=== PATIENT | male | born 2005 | race Asian ===

== ENCOUNTER → 2025-04-13 | Outpatient (CLI) | payer OTHER, SELFPAY ==
[2025-04-13 16:21] LABS: Hematocrit 46.9 % (40-54); Hemoglobin 15.9 g/dL (13.0-16.5); Immature Granulocytes Count 0.070 X10^3/uL (0.0-0.0); Mean Corp Hgb Conc 33.9 g/dL (32-36); Mean Corpuscular Volume 85.9 fL (80-94); Mean Platelet Vol. 10.3 fl (6.2-12.0); NRBC Flagged by Analyzer 0 % (0-5); Platelet Count 476 K/mm3 (150-450); RBC Distribution Width CV 12.5 % (11.6-14.6); RBC Distribution Width SD 38.6 fl (35.1-43.9); Red Blood Count 5.46 M/mm3 (4.6-6.2); White Blood Count 11.3 K/mm3 (4.4-11.0)
[2025-04-13 17:42] LABS: AST(SGOT) 28 U/L (<=37); Alanine Aminotransfer ALT/SGPT 42 U/L (<=46); Albumin, Serum 4.8 g/dL (3.5-5.0); Alkaline Phosphatase 112 U/L (40-129); Anion Gap 19 (5-15); BUN 12 mg/dL (4-19); BUN/Creat Ratio 19.8 RATIO (10-20); Calcium,Total 10.2 mg/dL (7.6-11.0); Carbon Dioxide 19.8 mmol/L (21.0-32.0); Chloride 101 mmol/L (98-108); Globulin 3.8 g/dL (2.2-4.2); Glucose 73 mg/dL (70-99); Potassium 3.8 mmol/L (3.3-5.1)
[2025-04-18 16:09] LABS: PROEL- A/G Ratio 1.1 (0.7-1.7); PROEL- Albumin 4.1 g/dL (2.9-4.4); PROEL- Alpha-1 Globulin 0.2 g/dL (0.0-0.4); PROEL- Alpha-2 Globulin 1.0 g/dL (0.4-1.0); PROEL- Beta Globulin 1.6 g/dL (0.7-1.3); PROEL- Gamma Globulin 1.0 g/dL (0.4-1.8); PROEL- Globulin, Total 3.8 g/dL (2.2-3.9); PROEL- TOTAL PROTEIN 7.9 g/dL (6.0-8.5); PROEL-M-Spike Not Observed g/dL (Not Observed)
== END | disposition home or self-care (01) ==
LOC: MFPLAB 11:57
PROVIDERS: PCP Family Medicine; Referring Provider Family Medicine; Visit Provider Family Medicine
DX: E88.09 Other disorders of plasma-protein metabolism, not elsewhere classified (principal); F41.9 Anxiety disorder, unspecified
CPT/HCPCS: 36415; 80053; 84165; 84443; 85025

== ENCOUNTER → 2025-05-08 | Outpatient (CLI) | payer OTHER, SELFPAY ==
--- OUTSIDE RECORDS SUMMARY | 2025-05-08 21:01 | XMS RPT_ITS | CCD ---
Author Organization [facility] Care Team Providers Care Child Welfare Specialist Name Role Phone Dimple Byers MD Primary Care Provider [phone] DIMPLE BYERS Primary Care Unavailable ROSANGELA JOHNS Referring Unavailable DIMPLE BYERS Primary Care Unavailable DIMPLE BYERS Primary Care Unavailable DIMPLE BYERS Primary Care Unavailable DIMPLE BYERS Attending Unavailable DIMPLE BYERS Primary Care Unavailable DIMPLE BYERS Primary Care Unavailable DIMPLE BYERS Primary Care Unavailable DIMPLE BYERS Primary Care Unavailable DIMPLE BYERS Attending Unavailable Dimple Byers MD Primary Care Provider [phone] Dimple Byers MD Primary Care Provider Dimple Anderson Attending Unavailable Dimple Anderson Primary Care Unavailable Dimple Anderson Referring Unavailable Dimple Anderson Attending Unavailable Dimple Anderson Primary Care Unavailable Dr. Dimple Anderson MD Primary Care Physician Dr. Dimple Anderson MD Attending Physician Dr. Dimple Anedrson MD Referring Provider Medications Current Medications Medication Drug Class(es) Dates Sig (Normalized) Sig (Original) [id number] actuat albuterol 0.09 mg/actuat metered dose inhaler (20 sources) beta2-Adrenergic Agonist Start: 07-06-2024 take 2 puff(s) by inhalation every four hours as needed for wheezing albuterol HFA (PROVENTIL HFA, VENTOLIN HFA) 90 mcg/actuation inhaler Inhale 2 Puffs as instructed every 4 hours as needed for wheezing/shortnes s of breath. 6.7 g 07/06/2024 Active Start: 03-03-2021 take 2 puff(s) by in halation every four hours as needed for wheezing albuterol HFA (PROAIR HFA) 90 mcg/actuation inhaler Indications: Intermittent asthma, well controlled (HCC) Inhale 2 Puffs as instructed every 4 hours as needed for wheezing/shortness of breath. 18 g 1 03/03/2021 Active Comment on above: Inhale 2 Puffs as in structed every 4 hours as needed for wheezing/shortness of breath. amoxicillin 875 mg oral tablet (1 source) Penicillin-class Antibacterial Start: 024 End: 024 take 1 tablet by mouth twice daily amoxicillin (AMOXIL) 875 mg tablet Indications: Other acute nonsuppurative otitis media of right ear, recurrence not specified Take 1 tablet by mouth two times a day for 7 days. 14 tablet 0 11/30/2023 12/07/2023 Active amoxicillin 875 mg / clavulanate 125 mg oral tablet (4 sources) Penicillin-class Antibacterial Start: 025 End: take 1 tablet by mouth twice daily amoxicillin-clavulana te potassium (AUGMENTIN) 875-125 mg per tablet Indications: Acute otitis media, right Take 1 tablet by mouth two times a day for 7 days. 14 tablet 08/01/2024 08/08/2024 Active Start: 07-06-2024 End: 07-11-2024 take 1 tablet by mouth twice daily amoxicillin-clavulanate potassium (AUGMENTIN) 875-125 mg per tablet Take 1 tablet by mouth two times a day for 5 days. 10 tablet 07/06/2024 07/11/2024 Active benzonatate 100 mg oral capsule (7 sources) Non-narcotic Antitussive Start: 07-24-2024 take 1 capsule by mouth three times daily as needed for cough benzonatate (TESSALON PERLE) 100 mg capsule Indications: Acute cough Take 1 capsule by mouth three times a day as needed for cough for up to 12 doses. 12 capsule 07/24/2024 Active Start: 07-10-2024 End: 07-17-2024 take 1 capsule by mouth three times daily as needed for cough benzonatate (TESSALON PERLE) 100 mg capsule Indications: Acute cough Take 1 capsule by mouth three times a day as needed for cough for up to 7 days. 21 capsule 07/10/2024 07/17/2024 Active fluticasone propionate 0.05 mg/actuat metered dose nasal spray (4 sources) Corticosteroid Start: 08-01-2024 take 2 spray(s) by mouth once daily fluticasone (FLONASE) 50 mcg/actuation nasal spray Indications: Dysfunction of both eustachian tubes Use 2 Sprays in each nostril once daily. Rinse mouth after use. 1 Each 08/01/2024 Active hydrOXYzine hydrochloride 25 mg oral tablet (20 sources) Antihistamine Start: 08-18-2021 take 1 tablet by mouth every eight hours as needed hydrOXYzine HCl (ATARAX) 25 mg tablet Take 1 tablet by mouth three times daily as needed for anxiety. 30 tablet 2 08/18/2021 Active Comment on above: Take 1 tablet by ilya th three times daily as needed for anxiety. melatonin 10 mg oral tablet (20 sources) Start: 06-02-2023 take 0.5 tablet by mouth once daily at bedtime melatonin 10 mg tab Take 0.5 tablets by mouth daily at bedtime. 06/02/2023 Active Start: 08-18-2021 End: 06-02-2023 take 1 tablet by mouth once daily at bedtime melatonin 10 mg tab Take 1 tablet by mouth daily at bedtime. 0 08/18/2021 06/02/2023 Discontinued (Adjust Sig - Block E-Cancel) Comment on above: Take 1 tablet by ilya th daily at bedtime. Take 0.5 tablets by mouth daily at bedtime. predniSONE 10 mg oral tablet (3 sources) Start: 08-01-2024 End: 08-13-2024 predniSONE (DELTASONE) 10 mg tablet Indications: Dysfunction of both eustachian tubes Take 4 tabs daily x 3 days, then 3 tabs x 3 days, 2 tabs x 3 days, then 1 tab x3 days with food. 30 tablet 08/01/2024 08/13/2024 Active Start: 07-10-2024 End: 07-19-2024 predniSONE (DELTASONE) 10 mg tablet Indications: Acute cough Take 4 tabs daily for 3 days, then 2 tabs daily for 3 days, then 1 tab daily for 3 days with food. 21 tablet 07/10/2024 07/19/2024 Active propranolol hydrochloride 10 mg oral tablet (17 sources) beta-Adrenergic Lucy Start: 06-02-2023 propranolol (INDERAL ) 10 mg tablet 1 tablet administered po 30 to 60 minutes prior to anxiety-provoking situation. May use up to 3 times dper day maximum. Please provide 2 labeled containers. 90 tablet 06/02/2023 Active Comment on above: 1 tablet administere d po 30 to 60 minutes prior to anxiety-provoking situation. May use up to 3 times dper day maximum. Please provide 2 labeled containers. sertraline 100 mg oral tablet (20 sources) Serotonin Reuptake Inhibitor Start: 02-01-2023 End: 10-10-2024 sertraline (ZOLOFT) 100 mg tablet Indications: Panic disorder without agoraphobia , Generalized anxiety disorder TAKE ONE AND ONE-HALF TABLETS ONCE DAILY 45 tablet 11 10/10/2024 Active Start: 08-18-2021 take 1.5 tablets by mouth once daily sertraline (ZOLOFT) 100 mg tablet Take 1.5 tablets by mouth once daily. 135 tablet 3 08/18/2021 Active Comment on above: Take 1.5 tablets by mouth once daily. TAKE ONE AND ONE-ALEXANDRA F TABLETS ONCE DAILY Completed/Discontinued Medications Medication Drug Class(es) Dates Sig (Normalized) Sig (Original) 24 hr dexmethylphenidate hydrochloride 15 mg extended release oral capsule (20 sources) Central Nervous System Stimulant Start: 10-12-2022 End: 04-02-2025 dexmethylphenidate XR (FOCALIN XR) 15 mg biphasic capsule Indications: ADHD, predominantly inattentive type Take 1 capsule by mouth once daily for 30 days. Patient should start on November 17, 2024. 30 capsule 11/17/2024 01/02/2025 Discontinued Start: 05-29-2022 End: 08-27-2022 take 1 capsule by mouth once daily in the morning dexmethylphenidate (FOCALIN XR) 15 mg Capsule ER Indications: ADHD, predominantly inattentive type Take 1 capsule by mouth every morning for 90 days. 90 capsule 0 05/29/2022 08/27/2022 Active Start: 12-02-2021 End: 05-26-2022 take 1 capsule by mouth once daily in the morning dexmethylphenidate (FOCALIN XR) 15 mg Capsule ER Indications: ADHD, predominantly inattentive type Take 1 capsule by mouth every morning for 90 days. 90 capsule 0 02/23/2022 05/26/2022 Discontinued Comment on above: Take 1 capsule by mo uth every morning for 90 days. Take 1 capsule by mo uth every morning for 30 days. Do not start before November 11, 2022. Take 1 capsule by mo uth every morning for 30 days. Do not start before December 11, 2022. Take 1 capsule by mo uth every morning for 30 days. oseltamivir 75 mg oral capsule (1 source) Neuraminidase Inhibitor Start: 08-28-19 End: 09-02-19 take 1 capsule by mouth twice daily Oseltamivir (Tamiflu) 75 mg capsule Discontinued 75 mg PO TWICE A DAY 10 5 0 August 28, 2023 1:00am September 01, 2023 1:00am September 02, 2023 1:04am Problems Active Problems Problem Classification Problem Date Documented Date Episodic/Chronic Anxiety disorders (20 sources) Generalized anxiety disorder; Translations: [Generalized anxiety disorder] Onset: 11-08-2014 Resolved: 08-18-2021 08-18-2021 Chronic Asthma (20 sources) Mild intermittent asthma; Translations: [Mild intermittent asthma, uncomplicated] Onset: 11-23-2011 11-27-2015 Chronic Attention-deficit, conduct, and disruptive behavior disorders (20 sources) Attention deficit hyperactivity disorder, predominantly inattentive type; Translations: [Attention-deficit hyperactivity disorder, predominantly inattentive type] Onset: 12-24-2014 Chronic Developmental disorders (20 sources) Developmental academic disorder; Translations: [Developmental disorder of scholastic skills, unspecified] Onset: 11-08-2014 08-18-2021 Chronic Influenza (1 source) Influenza due to Influenza A virus; Translations: [Influenza due to other identified influenza virus with other respiratory manifestations] 08-28-2023 Episodic Miscellaneous mental health disorders (20 sources) Insomnia disorder related to another mental disorder; Translations: [Insomnia due to other mental disorder] Onset: 08-18-2021 08-18-2021 Chronic Other injuries and conditions due to external causes (1 source) Foreign body in left ear; Translations: [Foreign body in left ear, initial encounter] 07-29-2023 Episodic Other lower respiratory disease (4 sources) Cough; Translations: [Acute cough] 07-06-2024 Episodic Other lower respiratory disease (1 source) Cough; Translations: [Cough] 08-28-2023 Episodic Other nutritional; endocrine; and metabolic disorders (2 sources) Other disorders of plasma-protein metabolism, not elsewhere classified; Translations: [Other disorders of plasma-protein metabolism, not elsewhere classified] Onset: 04-18-2025 Chronic Other upper respiratory disease (1 source) Nasal discharge; Translations: [Other specified disorders of nose and nasal sinuses] 08-28-2023 Episodic Other upper respiratory disease (1 source) Congestion of nasal sinus; Translations: [Nasal congestion] 08-28-2023 Episodic Other upper respiratory infections (1 source) Chronic sinusitis; Translations: [Chronic sinusitis, unspecified] 07-06-2024 Chronic Other upper respiratory infections (1 source) Sore throat symptom; Translations: [Acute pharyngitis, unspecified] 07-06-2024 Episodic Otitis media and related conditions (3 sources) Acute secretory otitis media; Translations: [Other acute nonsuppurative otitis media, right ear] 11-30-2023 Episodic Screening and history of mental health and substance abuse codes (2 sources) Patient encounter status; Translations: [Encounter for screening for depression] Episodic Unclassified (1 source) Acute cough; Translations: [Acute cough] Onset: 07-06-2024 Past or Other Problems Problem Classification Problem Date Documented Da te Episodic/Chronic Other diseases of kidney and ureters (20 sources) Vesicoureteric reflux; Translations: [Vesicoureteral-refl ux, unspecified] Onset: 02-24-2007 02-24-2007 Episodic Other gastrointestinal disorders (18 sources) Constipation; Translations: [Constipation, unspecified] Onset: 11-08-2014 Resolved: 03-18-2022 11-08-2014 Episodic Results Test Name Value Interpretation Reference Range Facility Lars Alvarez 04-18 Albumin [Mass/Vol] 4.1 g/dL Normal 2.9-4.4 [facility] Comment on above: Order Comment: EMIR SPENCER PROEL TOP LABS DRAWN 04/13/[address] ANDERSON - EEGG Performed By: #### L 3100.3450 #### [facility] [place], [address] Albumin/Globulin [Mass ratio] 1.1 {ratio} Normal 0.7-1.7 [facility] Comment on above: Order Comment: LEIGHANNREED Amaya ADD PROEL TOP LABS DRAWN 04/13/[address] ANDERSON - EEGG Performed By: #### L 3100.3450 #### [facility] [address] [place], [address] ALPHA-1 GLOBUL 0.2 g/dL Normal 0.0-0.4 [facility] Comment on above: Order Comment: LEIGHANNAS E ADD PROEL TOP LABS DRAWN 04/13/[address] ANDERSON - EEGG Performed By: #### L 3100.3450 #### [facility] [address] [place], [address] ALPHA-2 GLOBUL 1.0 g/dL Normal 0.4-1.0 [facility] Comment on above: Order Comment: LEIGHANNREED E ADD PROEL TOP LABS DRAWN 04/13/[address] ANDERSON - EEGG Performed By: #### L 3100.3450 #### [facility] [address] [place], [address] BETA GLOBULIN 1.6 g/dL High 0.7-1.3 [facility] Comment on above: Order Comment: LEIGHANNREED Amaya ADD PROEL TOP LABS DRAWN 04/13/[address] ANDERSON - EEGG Performed By: #### L 3100.3450 #### [facility] [address] [place], [address] GAMMA GLOBULIN 1.0 g/dL Normal 0.4-1.8 [facility] Comment on above: Order Comment: LEIGHANNAS E ADD PROEL TOP LABS DRAWN 04/13/[address] ANDERSON - EEGG Performed By: #### L 3100.3450 #### [facility] [address] [place], [address] Globulin (S) [Mass/Vol] 3.8 g/dL Normal 2.2-3.[address] [facility] Comment on above: Order Comment: PLEAS E ADD PROEL TOP LABS DRAWN 04/13/[address] ANDERSON - EEGG Performed By: #### L 3100.3450 #### [facility] [address] [place], [place], [id number] INTERPRETATION Comment Normal . [facility] Comment on above: Order Comment: EMIR Amaya ADD PROEL TOP LABS DRAWN 04/13/[address] ANDERSON - EEGG Result Comment: Prot ein electrophoresis scan will follow via computer, mail, or linter saw sharpener delivery. Performed By: #### L 3100.3450 #### [facility] [address] [place], [place], [id number] M-SPIKE Not Observed Normal Not Observed [facility] Comment on above: Order Comment: EMIR Amaya ADD PROEL TOP LABS DRAWN 04/13/[address] ANDERSON - EEGG Performed By: #### L 3100.3450 #### [facility] [address] [place], [place], [id number] NOTE: Comment Normal . [facility] Comment on above: Order Comment: EMIR Amaya ADD PROEL TOP LABS DRAWN 04/13/[address] ANDERSON - EEGG Result Comment: The SPE pattern demonstrates an increase in the beta fraction. This may be due to increases in transferrin, beta- lipoprotein (hypercholesterolemia), or immunoglobulins, as seen in polyclonal or monoclonal gammopathies. If clinically indicated, the presence of a monoclonal gammopathy may be confirmed by immunofixation or serum free light chain quantitation. Performed at: [address] [id number] Mining Support Worker: Antonino Pederson PhD, Phone: [phone] Performed By: #### L 3100.3450 #### [facility] [address] [place], [place], [id number] Protein [Mass/Vol] 7.9 g/dL Normal 6.0-8.5 [facility] Comment on above: Order Comment: EMIR Amaya ADD PROEL TOP LABS DRAWN 04/13/[address] ANDERSON - EEGG Performed By: #### L 3100.3450 #### [facility] [address] [place], [place], [id number] Absolute lymphocyte countOrd ered By: Dimple Anderson on 04-13-2025 Lymphocytes Auto (Unsp spec) [#/Vol] 3.75 10*3/uL 0.83-4.51 [facility] Absolute neutrophil countOrd ered By: Dimple Anderson on 04-13-2025 Neutrophils (Bld) [#/Vol] 6.5 10*3/uL 2.0-7.7 [facility] Albumin Elph [Mass/Vol]Order ed By: Dimple Anderson on 04-13-2025 Albumin [Mass/Vol] 4.1 g/dL 2.9-4.4 [facility] Anion gap in Serum or Plasma Ordered By: Dimple Anderson on 04-13-2025 Anion gap [Moles/Vol] 19 mmol/L High 5-15 [facility] Automated lymphocyte count a s percentage of total leukocytesOrdered By: Dimple Anderson on 04-13-2025 Lymphocytes/100 WBC Auto (Unsp spec) 33.1 % 19-41 [facility] BUN/creatinine ratioOrdered By: Dimple Anderson on 04-13-2025 Urea nitrogen/Creatinine [Mass ratio] 19.8 mg/mg 10-20 [facility] Basophil percentageOrdered B y: Dimple Anderson on 04-13-2025 Basophils/100 WBC (Bld) 0.8 % 0-[address] [facility] Bilirubin, totalOrdered By: Dimple Anderson on 04-13-2025 Bilirubin [Mass/Vol] 0.30 mg/dL 0.00-1.[address] [facility] CBC W/Diff, Automatedon 03-20 Absolute Lymph 3.75 X10 3/uL Normal 0.83-4.51 [facility] Comment on above: Order Comment: Order Date: 04/13/25 Order Info: 0184-1 - CBCD Performed By: #### L 100.0100, L500.4050, L501.9520 #### [facility] [address] [place], [address] Absolute Neut 6.5 X10 3/uL Normal 2.0-7.7 [facility] Comment on above: Order Comment: Order Date: 04/13/25 Order Info: 0184-1 - CBCD Performed By: #### L 100.0100, L500.4050, L501.9520 #### [facility] [address] [place], [address] Basophils/100 WBC (Bld) 0.8 % Normal 0-[address] [facility] Comment on above: Order Comment: Order Date: 04/13/25 Order Info: 0184-1 - CBCD Performed By: #### L 100.0100, L500.4050, L501.9520 #### [facility] [address] [place], [address] Eosinophils/100 WBC (Bld) 3.7 % Normal 0-5 [facility] Comment on above: Order Comment: Order Date: 04/13/25 Order Info: 0184-1 - CBCD Performed By: #### L 100.0100, L500.4050, L501.9520 #### [facility] [address] [place], [address] Erythrocyte distribution width (RBC) [Ratio] 12.5 % Normal 11.6-14.6 [facility] Comment on above: Order Comment: Order Date: 04/13/25 Order Info: 0184-1 - CBCD Performed By: #### L 100.0100, L500.4050, L501.9520 #### [facility] [address] [place], [address] Hematocrit (Bld) [Volume fraction] 46.9 % Normal 40-54 [facility] Comment on above: Order Comment: Order Date: 04/13/25 Order Info: 0184-1 - CBCD Performed By: #### L 100.0100, L500.4050, L501.9520 #### [facility] [address] [place], [address] Hemoglobin (Bld) [Mass/Vol] 15.9 g/dL Normal 13.0-16.5 [facility] Comment on above: Order Comment: Order Date: 04/13/25 Order Info: 0184-1 - CBCD Performed By: #### L 100.0100, L500.4050, L501.9520 #### [facility] [address] [place], [address] IG% 0.600 Normal 0.0-0.9 [facility] Comment on above: Order Comment: Order Date: 04/13/25 Order Info: 0184- - CBCD Result Comment: IG% - Immature Granulocytes (promyelocytes, myelocytes and metamyelocytes) > 1% indicates that a LEFT SHIFT is Present. Performed By: #### L 100.0100, L500.4050, L501.9520 #### [facility] [address] [place], [address] Lymphocytes/100 WBC (Bld) 33.1 % Normal 19-41 [facility] Comment on above: Order Comment: Order Date: 04/13/25 Order Info: 0184-1 - CBCD Performed By: #### L 100.0100, L500.4050, [id number] #### [facility] [address] [place], [address] MCH (RBC) [Entitic mass] 29.1 pg Normal 27.0-32.0 [facility] Comment on above: Order Comment: Order Date: 04/13/25 Order Info: 0184-1 - CBCD Performed By: #### L 100.0100, L500.4050, L501.9520 #### [facility] [address] [place], [address] MCHC (RBC) [Mass/Vol] 33.9 g/dL Normal 32-36 [facility] Comment on above: Order Comment: Order Date: 04/13/25 Order Info: 0184-1 - CBCD Performed By: #### L 100.0100, L500.4050, L501.9520 #### [facility] [address] [place], [address] MCV (RBC) [Entitic vol] 85.9 fL Normal 80-[address] [facility] Comment on above: Order Comment: Order Date: 04/13/25 Order Info: 0184-1 - CBCD Performed By: #### L 100.0100, L500.4050, [id number] #### [facility] [address] [place], [address] Monocytes/100 WBC (Bld) 4.3 % Normal 0-[address] [facility] Comment on above: Order Comment: Order Date: 04/13/25 Order Info: 0184-1 - CBCD Performed By: #### L 100.0100, L500.4050, [id number] #### [facility] [address] [place], [address] Neutrophils/100 WBC (Bld) 57.5 % Normal 47-70 [facility] Comment on above: Order Comment: Order Date: 04/13/25 Order Info: 0184-1 - CBCD Performed By: #### L 100.0100, L500.4050, [id number] #### [facility] [address] [place], [address] Nucleated RBC (Bld) [#/Vol] 0 10*3/uL Normal 0-5 [facility] Comment on above: Order Comment: Order Date: 04/13/25 Order Info: 0184-1 - CBCD Performed By: #### L 100.0100, L500.4050, [id number] #### [facility] [address] [place], [address] Platelet mean volume (Bld) [Entitic vol] 10.3 fL Normal 6.2-12.0 [facility] Comment on above: Order Comment: Order Date: 04/13/25 Order Info: 0184-1 - CBCD Performed By: #### L 100.0100, L500.4050, [id number] #### [facility] [address] [place], [address] Platelets (Bld) [#/Vol] 476 10*3/uL High 150-450 [facility] Comment on above: Order Comment: Order Date: 04/13/25 Order Info: 0184-1 - CBCD Performed By: #### L 100.0100, L500.4050, [id number] #### [facility] [address] [place], [address] RBC (Bld) [#/Vol] 5.46 10*6/uL Normal 4.6-6.2 [facility] Comment on above: Order Comment: Order Date: 04/13/25 Order Info: 0184-1 - CBCD Performed By: #### L 100.0100, L500.4050, [id number] #### [facility] [address] [place], [address] RDW SD 38.6 fl Normal 35.1-43.9 [facility] Comment on above: Order Comment: Order Date: 04/13/25 Order Info: 0184-1 - CBCD Performed By: #### L 100.0100, L500.4050, [id number] #### [facility] [address] [place], [address] WBC (Bld) [#/Vol] 11.3 10*3/uL High 4.4-11.0 [facility] Comment on above: Order Comment: Order Date: 04/13/25 Order Info: 0184-1 - CBCD Performed By: #### L 100.0100, L500.4050, [id number] #### [facility] [address] [place], [address] Carbon dioxide, total [Moles /volume] in Central venous bloodOrdered By: Dimple Anderson on 04-13-2025 CO2 [Moles/Vol] 19.8 mmol/L Low 21.0-32.0 [facility] Chloride assayOrdered By: Maday Anderson on 04-13-2025 Chloride [Moles/Vol] 101 mmol/L 98-[address] [facility] Comprehensive Metabolic Prof ilon 04-13-2025 Albumin [Mass/Vol] 4.8 g/dL Normal 3.5-5.0 [facility] Comment on above: Order Comment: Order Date: 04/13/25 Order Info: [id number] - CMP Order Info: 3 - TSH Performed By: #### L 100.0100, L500.4050, L501.9520 #### [facility] [address] [place], [address] Albumin/Globulin [Mass ratio] 1.3 {ratio} Normal 0.9-2.4 [facility] Comment on above: Order Comment: Order Date: 04/13/25 Order Info: 0786-1 - CMP Order Info: 3 - TSH Performed By: #### L 100.0100, L500.4050, [id number] #### [facility] [address] [place], [address] ALK PHOS 112 U/L Normal 40-129 [facility] Comment on above: Order Comment: Order Date: 04/13/25 Order Info: 0786-1 - CMP Order Info: 3015-3 - TSH Performed By: #### L 100.0100, L500.4050, [id number] #### [facility] [address] [place], [address] ALT [Catalytic activity/Vol] 42 U/L Normal <=46 [facility] Comment on above: Order Comment: Order Date: 04/13/25 Order Info: 0786-1 - CMP Order Info: 6-3 - TSH Performed By: #### L 100.0100, L500.4050, L501.9520 #### [facility] [address] [place], [address] AST [Catalytic activity/Vol] 28 U/L Normal <=37 [facility] [facility] Comment on above: Order Comment: Order Date: 04/13/25 Order Info: 0786-1 - CMP Order Info: 3015-3 - TSH Performed By: #### L 100.0100, L500.4050, L501.9520 #### [facility] [address] [place], [address] Bilirubin [Mass/Vol] 0.30 mg/dL Normal 0.00-1.[address] [facility] Comment on above: Order Comment: Order Date: 04/13/25 Order Info: 07-1 - CMP Order Info: 3 - TSH Performed By: #### L 100.0100, L500.4050, [id number] #### [facility] [address] [place], [address] BUN/CRE 19.8 RATIO Normal 10-20 [facility] Comment on above: Order Comment: Order Date: 04/13/25 Order Info: 0786- - CMP Order Info: 3 - TSH Performed By: #### L 100.0100, L500.4050, [id number] #### [facility] [address] [place], [address] Calcium [Mass/Vol] 10.2 mg/dL Normal 7.6-11.0 [facility] Comment on above: Order Comment: Order Date: 04/13/25 Order Info: 07861 - CMP Order Info: 3 - TSH Performed By: #### L 100.0100, L500.4050, [id number] #### [facility] [address] [place], [address] Chloride [Moles/Vol] 101 mmol/L Normal 98-[address] [facility] Comment on above: Order Comment: Order Date: 04/13/25 Order Info: 0786-1 - CMP Order Info: 3 - TSH Performed By: #### L 100.0100, L500.4050, [id number] #### [facility] [address] [place], [address] CO2 [Moles/Vol] 19.8 mmol/L Low 21.0-32.0 [facility] Comment on above: Order Comment: Order Date: 04/13/25 Order Info: 0786- - CMP Order Info: 3 - TSH Performed By: #### L 100.0100, L500.4050, [id number] #### [facility] [address] [place], [address] Creatinine [Mass/Vol] 0.62 mg/dL Low 0.70-1.20 [facility] Comment on above: Order Comment: Order Date: 04/13/25 Order Info: 0786- - CMP Order Info: 3015-09 - TSH Performed By: #### L 100.0100, L500.4050, [id number] #### [facility] [address] [place], [address] GAP 19 High 5-15 [facility] Comment on above: Order Comment: Order Date: 04/13/25 Order Info: 0786- - CMP Order Info: 3 - TSH Performed By: #### L 100.0100, L500.4050, [id number] #### [facility] [address] [place], [address] GFR/1.73 sq M.predicted among non-blacks MDRD (S/P/Bld) [Vol rate/Area] 141 mL/min/{1.73_m2} Normal >[address] [facility] Comment on above: Order Comment: Order Date: 04/13/25 Order Info: 0786-1 - CMP Order Info: 3 - TSH Result Comment: mL/m in/1.73m2 CKD-EPI Creatinine Equation (2020) Performed By: #### L 100.0100, L500.4050, [id number] #### [facility] [address] [place], [address] Globulin (S) [Mass/Vol] 3.8 g/dL Normal 2.2-4.2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 dexmethylphenidate XR (FOCALIN XR) 15 mg biphasic capsule Take 1 capsule by mouth every morning for 30 days. Patient should start on July 26, 2024. sertraline (ZOLOFT) 100 mg tablet TAKE ONE AND ONE-HALF TABLETS ONCE DAILY melatonin 10 mg tab Take 0.5 tablets by mouth daily at bedtime. propranolol (INDERAL) 10 mg tablet 1 tablet administered po 30 to 60 minutes prior to anxiety-provoking situation. May use up to 3 times dper day maximum. Please provide 2 labeled containers. hydrOXYzine HCl (ATARAX) 25 mg tablet Take 1 tablet by mouth three times daily as needed for anxiety. albuterol HFA (PROAIR HFA) 90 mcg/actuation inhaler Inhale 2 Puffs as instructed every 4 hours as needed for wheezing/shortness of breath. predniSONE (DELTASONE) 10 mg tablet Take 4 tabs daily for 3 days, then 2 tabs daily for 3 days, then 1 tab daily for 3 days with food. benzonatate (TESSALON PERLE) 100 mg capsule Take 1 capsule by mouth three times a day as needed for cough for up to 7 days. dexmethylphenidate XR (FOCALIN XR) 15 mg biphasic capsule Take 1 capsule by mouth every morning for 30 days. dexmethylphenidate XR (FOCALIN XR) 15 mg biphasic capsule Take 1 capsule by mouth every morning for 30 days. Patient should start on June 25, 2024. FAMILY HISTORY Adopted: Yes Problem Relation Age of Onset other (unknown) Other patient is adopted Social History Tobacco Use Smoking status: Never Passive exposure: Never Smokeless tobacco: Never Vaping Use Vaping status: Never Used ASSESSMENT/PLAN: 1. Acute cough - ICD9: 786.2, ICD10: R05.1 - PREDNISONE 10 MG TABLET - BENZONATATE 100 MG CAPSULE Prescription instructions reviewed with patient as applicable. Potential red flag symptoms discussed with the patient. Reviewed appropriate action plan to take if red flag symptoms occur. Patient agreeable to treatment plan. Graeme Gutierrez APRN.[facility] Allergies As of Date: 07/10/2024 (No Known Allergies) Date Reviewed: 07/10/2024 Reviewed by: Lora Butcher MA - Fully Assessed Reason for Visit: Cough [28] Cmt: nasal congestion on augmentin Primary Visit Diagnosis:Acute cough [R05.1] Order(s):predniSONE (DELTASONE) 10 mg tabletTake 4 tabs daily for 3 days, then 2 tabs daily for 3 days, then 1 tab daily for 3 days with food.Disp: 21 tabletRfl: 0 benzonatate (TESSALON PERLE) 100 mg capsuleTake 1 capsule by mouth three times a day as needed for cough for up to 7 days.Disp: 21 capsuleR (more content not included)... Normal [facility] CNOVon 07-06-2024 CNOV Office Visit (WSTR ) PIYUSH GUDINO ([id number]) [birth year] M Date Time Provider Department 07/06/24 4:15 PM ROSANGELA JOHNS [facility] During your visit today, we recorded the following information about you: Temperature Pulse Respiration Blood pressure 98.2 degrees 94/minute 16/minute 146/80 Weight 75.4 kg Rosangela Johns PA 07/06/2024 4:22 PM Signed This note was created using [employer]. Subjective Piyush Gudino is a 18 year old male. HPI 18-year-old male presents for cough, sore throat, shortness of breath. Patient states he has had a dry cough for about a week. He has had nasal congestion for about 2 weeks. States he has a little bit of sore throat, mainly with coughing. He does have some shortness of breath with coughing. He has history of asthma, but is no longer on inhalers. He states he feels like he is wheezing a little bit at home occasionally. No fevers. No vomiting or diarrhea. No other complaint. No sick contacts that he is aware of. PAST MEDICAL HISTORY Diagnosis Date Anxiety Asthma Eczema mild Hayfever NEGATIVE MEDICAL HISTORY normal color vision Vesicoureteral reflux, unspecified or without reflux nephropathy 200405 grade 2 PAST SURGICAL HISTORY Procedure Laterality Date CHG CIRCUMCISION 04/18/07 ALLERGIES Patient has no known allergies. MEDICATIONS [START ON 07/26/2024] dexmethylphenidate XR (FOCALIN XR) 15 mg biphasic capsule Take 1 capsule by mouth every morning for 30 days. Patient should start on July 26, 2024. dexmethylphenidate XR (FOCALIN XR) 15 mg biphasic capsule Take 1 capsule by mouth every morning for 30 days. Patient should start on June 25, 2024. sertraline (ZOLOFT) 100 mg tablet TAKE ONE AND ONE-HALF TABLETS ONCE DAILY melatonin 10 mg tab Take 0.5 tablets by mouth daily at bedtime. propranolol (INDERAL) 10 mg tablet 1 tablet administered po 30 to 60 minutes prior to anxiety-provoking situation. May use up to 3 times dper day maximum. Please provide 2 labeled containers. hydrOXYzine HCl (ATARAX) 25 mg tablet Take 1 tablet by mouth three times daily as needed for anxiety. albuterol HFA (PROAIR HFA) 90 mcg/actuation inhaler Inhale 2 Puffs as instructed every 4 hours as needed for wheezing/shortness of breath. dexmethylphenidate XR (FOCALIN XR) 15 mg biphasic capsule Take 1 capsule by mouth every morning for 30 days. FAMILY HISTORY Adopted: Yes Problem Relation Age of Onset other (unknown) Other patient is adopted Social History Tobacco Use Smoking status: Never Passive exposure: Never Smokeless tobacco: Never Vaping Use Vaping status: Never Used Review of Systems Constitutional: Negative for chills and fever. HENT: Positive for congestion and sore throat. Respiratory: Positive for cough, shortness of breath and wheezing. Gastrointestinal: Negative for diarrhea and vomiting. Objective BP 146/80 (BP Site: Left Arm, BP Position: Sitting) Pulse 94 Temp 36.8 ?C (98.2 ?F) Resp 16 Wt 75.4 kg (166 lb 3.6 oz) SpO2 99% BMI 29.45 kg/m? Physical Exam Vitals and nursing note reviewed. Constitutional: General: He is not in acute distress. Appearance: Normal appearance. He is not toxic-appearing. HENT: Right Ear: Tympanic membrane and ear canal normal. Left Ear: Tympanic membrane and ear canal normal. Nose: Mucosal edema and congestion present. Mouth/Throat: Mouth: Mucous membranes are moist. Eyes: Conjunctiva/sclera: Conjunctivae normal. Cardiovascular: Rate and Rhythm: Normal rate and regular rhythm. Pulmonary: Effort: Pulmonary effort is normal. Breath sounds: Normal breath sounds. No wheezing, rhonchi or rales. Skin: General: Skin is warm and dry. Neurological: Mental Status: He is alert. Assessment and Plan ASSESSMENT/PLAN: 1. Sinobronchitis - ICD9: 473.9, 490, ICD10: J32.9, J40 (primary diagnosis) - Will begin treatment with Augmentin 875 mg PO BID for 5 days -Refill albuterol inhaler - Supportive care with plenty of fluids, rest, and analgesia prn. 2. Sore throat - ICD9: 462, ICD10: J02.9 - suspect viral - Group A strep molecular testing negative - Discussed supportive care treatment with fluids, rest and analgesia. - The patient may also use warm salt water gargles, throat lozenges and/or OTC throat spray as needed. - STREP A MOLECULAR (POC) 3. Acute cough - ICD9: 786.2, ICD10: R05.1 - XR CHEST 2V FRONTAL/LAT-no acute radiographic abnormality Diagnosis and treatment plan were discussed and questions were answered to the patient's satisfaction. Pt acknowledged understanding of concepts and follow up plan. Specific signs and symptoms that would indicate the need for higher level of care were discussed in detail warranting prompt ER evaluation. MELANIE Peguero Allergies As of Date: 07/06/2024 (No Known Allergies) Date Reviewed: 07/06/2024 Reviewed by: Str (more content not included)... Normal [facility] STREP A MOLECULAR (POC)on Procedural Control Valid [facility] Strep A (POCT) Negative Negative [facility] XR CHEST 2V FRONTAL/LATon XR CHEST 2V FRONTAL/LAT * * *Final Repor t* * * DATE OF EXAM: Jul 06 2024 4:14PM WOX [id number] - XR CHEST 2V FRONTAL/LAT / PROCEDURE REASON: Acute cough * * * * Physician Interpretation * * * * EXAMINATION: CHEST RADIOGRAPH (2 VIEW FRONTAL and LATERAL) CLINICAL HISTORY: Acute cough MQ: XC2_6 EXAM DATE/TIME: 07/06/2024 4:14 PM COMPARISON: 12/10/2009 RESULT: Lines, tubes, and devices: None. Lungs and pleura: No consolidation. No lung mass. No pleural effusion. No pneumothorax. Cardiomediastinal silhouette: Normal cardiomediastinal silhouette. Bones and soft tissues: Unremarkable. IMPRESSION: No acute radiographic abnormality. Channel Cementer Insole Machine: [id number] Transcribe Date/Time: Jul 06 2024 4:14P Dictated by : Pola SIM MD This examination was interpreted and the report reviewed and electronically signed by: Pola SIM MD on Jul 06 2024 4:16PM EST [id number] Normal [facility] XR Chest PA and Lateralon Radiology Study observation (narrative) [facility] IMPRESSION: No acute radiographic abnormality. Channel Cementer Insole Machine: [id number] [email or web address] Transcribe Date/Time: Jul 06 2024 4:14P Dictated by : Pola SIM MD This examination was interpreted and the report reviewed and electronically signed by: Pola SIM MD on Jul 06 2024 4:16PM EST DIVISION OF RADIOLOGY * * *Final Report* * * DATE OF EXAM: Jul 06 2024 4:14PM WOX [id number] - XR CHEST 2V FRONTAL/LAT / PROCEDURE REASON: Acute cough * * * * Physician Interpretation * * * * EXAMINATION: CHEST RADIOGRAPH (2 VIEW FRONTAL & LATERAL) CLINICAL HISTORY: Acute cough MQ: XC2_6 EXAM DATE/TIME: 07/06/2024 4:14 PM COMPARISON: 12/10/2009 RESULT: Lines, tubes, and devices: None. Lungs and pleura: No consolidation. No lung mass. No pleural effusion. No pneumothorax. Cardiomediastinal silhouette: Normal cardiomediastinal silhouette. Bones and soft tissues: Unremarkable. DIVISION OF RADIOLOGY Provider, [facility] - 07/06/2024 * * *Final Report* * * DATE OF EXAM: Jul 06 2024 4:14PM WOX [id number] - XR CHEST 2V FRONTAL/LAT / PROCEDURE REASON: Acute cough * * * * Physician Interpretation * * * * EXAMINATION: CHEST RADIOGRAPH (2 VIEW FRONTAL & LATERAL) CLINICAL HISTORY: Acute cough MQ: XC2_6 EXAM DATE/TIME: 07/06/2024 4:14 PM COMPARISON: 12/10/2009 RESULT: Lines, tubes, and devices: None. Lungs and pleura: No consolidation. No lung mass. No pleural effusion. No pneumothorax. Cardiomediastinal silhouette: Normal cardiomediastinal silhouette. Bones and soft tissues: Unremarkable. IMPRESSION IMPRESSION: No acute radiographic abnormality. Channel Cementer Insole Machine: [email or web address] Transcribe Date/Time: Jul 06 2024 4:14P Dictated by : Pola SIM MD This examination was interpreted and the report reviewed and electronically signed by: Pola SIM MD on Jul 06 2024 4:16PM EST [facility] XR Chest PA and LateralOrder ed By: Ccsonya Provider on 07-06-[address] [facility] CNOVon 04-12-2024 CNOV Office Visit (PEDSWS ) PIYUSH GUDINO ([id number]) 3 M Date Time Provider Department 04/12/24 11:30 AM DIMPLE BYERS PEDSWS During your visit today, we recorded the following information about you: Temperature Pulse Respiration Blood pressure 97.4 degrees 80/minute 16/minute 114/66 Weight Height 75.3 kg 1.6 m Dimple Byers MD 04/12/2024 12:17 PM Signed Piyush Gudino is a 18-year-old male with attention deficit hyperactivity disorder, inattentive subtype who additionally has a diagnosis of generalized anxiety disorder and panic disorder who presents to the office today for routine follow-up and management Currently taking Focalin XR 15 mg for ADHD. Patient states he takes the medication 7 days/week. States the medication is a very useful tool and wishes to continue using the medication. Medication is very helpful with organization, sequencing and understanding multiple tasks. Patient has been seen by pediatric psychiatry in the past for his anxiety and panic disorder. Currently taking Zoloft 150 mg by mouth once daily. Patient has not seen psychiatry since March 30, 2023. Patient wishes to continue the Zoloft as he feels that is very helpful with his anxiety. Rarely uses Atarax for panic but does help when he needs it. Recent use was mild panic after a friendship break-up. Patient is currently living at home patient Graduated [employer] high school Patient is currently working at [employer]. Flexible hours. Will be attending a cosmetology/nail school in [employer]. ACTIVE PROBLEM LIST Vesicoureteral Reflux, Unspecified Or Without Reflux Nephropathy Mild Intermittent Asthma Without Complication Learning Disability Adhd, Predominantly Inattentive Type Generalized Anxiety Disorder Panic Disorder Without Agoraphobia Insomnia Due to Other Mental Disorder PAST MEDICAL HISTORY Diagnosis Date Anxiety Asthma Eczema mild Hayfever NEGATIVE MEDICAL HISTORY normal color vision Vesicoureteral reflux, unspecified or without reflux nephropathy 200405 grade 2 PAST SURGICAL HISTORY Procedure Laterality Date CHG CIRCUMCISION 04/18/07 ALLERGIES No Known Allergies 04/12/24 1113 BP: 114/66 Pulse: 80 Resp: 16 Temp: 36.3 ?C (97.4 ?F) TempSrc: Temporal Weight: 75.3 kg (166 lb) Height: 160 cm (5' 3") GENERAL: Appearance: Neat and clean, Attired in street clothes, Appropriately groomed, and Appropriate hygiene Behavior: organized and cooperative Activity/Motor: normal Interaction: Eye Contact: Yes Interaction: Yes Gait: normal Speech:clear and distinct Yes MOOD: Affect:: Mood Congruent Thought Form: Linear and Organized Content: Rational and future-oriented Suicidal: Denies Perception: Appears intact Cognition: Intact Orientation Insight: Present and adequate Judgment: Present and adequate Additional Observations: No PHQ-9 Score: 0 [id number] Score: 4 1. ADHD, predominantly inattentive type - ICD9: 314.00, ICD10: F90.0 (primary diagnosis) - DEXMETHYLPHENIDATE ER 15 MG CAPSULE,EXTENDED RELEASE [id number] 2. Generalized anxiety disorder - ICD9: 300.02, ICD10: F41.1 - SERTRALINE 100 MG TABLET 3. Panic disorder without agoraphobia - ICD9: 300.01, ICD10: F41.0 - SERTRALINE 100 MG TABLET Regarding the patient's generalized anxiety disorder, panic disorder and treatment with Zoloft I did provide a 3-month refill. He will need to decide whether he is returning to pediatric psychiatry in [place]. Alternatively we can establish him with the psychiatry provider sees patients in [place] I spent a total of 30 minutes on the date of the service which included preparing to see the patient, [id number] patient care, completing clinical documentation, obtaining and/or reviewing separately obtained history, performing a medically appropriate examination, counseling and educating the patient/family/caregive r, and ordering medications, tests, or procedures. Follow-up 6 months for ADHD Dimple Byers MD [facility] Department of Pediatrics, [facility] Allergies As of Date: 04/12/2024 (No Known Allergies) Date Reviewed: 04/12/2024 Reviewed by: Bere Greene MA - Fully Assessed Reason for Visit: axiety/adhd [Other] Primary Visit Diagnosis:ADHD, predominantly inattentive type [F90.0] Other Visit Diagnoses:Generalized anxiety disorder [F41.1] Panic disorder without agoraphobia [F41.0] Order(s):sertraline (ZOLOFT) 100 mg tabletTAKE ONE AND ONE-HALF TABLETS ONCE DAILYDisp: 135 EachRfl: 0 dexmethylphenidate XR (FOCALIN XR) 15 mg biphasic capsuleTake 1 capsule by mouth every morning for 90 days.Disp: 90 capsuleRfl: 0 Prescriptions as of 04/12/2024 - sertraline (ZOLOFT) 100 mg tablet TAKE ONE AND ONE-HALF TABLETS ONCE DAILY - dexmethylphenidate XR (FOCALIN XR) 15 mg biphasic capsule Take 1 capsule by mouth every morning for 90 d (more content not included)... Normal [facility] CNOVon 11-30-2023 CNOV Office Visit (UCWSTR ) PIYUSH GUDINO ([id number]) 3 M Date Time Provider Department 11/30/23 6:30 PM MATY ANDERS WSTR During your visit today, we recorded the following information about you: Temperature Pulse Respiration Blood pressure 97.9 degrees 90/minute 16/minute 118/68 Weight 76.7 kg Maty Anders APRN.[facility] 11/30/2023 6:47 PM Signed ASSESSMENT/PLAN: 1. Other acute nonsuppurative otitis media of right ear, recurrence not specified - ICD9: 381.00, ICD10: H65.191 - Will begin treatment with as per antibiotic as written, see orders - Supportive care with plenty of fluids, rest, and analgesia prn. - AMOXICILLIN 875 MG TABLET - may also use flonase nasal spray - Follow-up with your PCP in 3-5 days if symptoms have not improved or sooner if symptoms worsen - Discussed red flags and need for immediate medical evaluation if any occur. - Discussed supportive care treatment with fluids, rest and analgesia. - Discussed expected course of illness Maty Anders APRN.[facility] OTITIS MEDIA GENERAL INFORMATION: Otitis media is an infection of the middle ear. The middle ear sits behind the eardrum. This infection may be caused by a virus or bacteria and often follows a cold. Children often have repeat ear infections. Otitis media is not contagious. INSTRUCTIONS: 1. An antibiotic has been prescribed. It should be taken exactly as prescribed. Do not stop the medicine even if the symptoms go away. 2. Omrn-oew-oaexhso pain medication may be taken or other pain medication as prescribed by the doctor. 3. Nothing should be placed in the ear unless instructed by your doctor. 4. The patient may return to school/daycare or work when the temperature is normal (98.6 F or 37 C). 5. The patient should not swim while the ear is infected. CONTACT YOUR DOCTOR IF YOU OR YOUR CHILD: 1. Does not feel better within 36 hours. 2. Develops a temperature over 102E F (39E C). 3. Starts vomiting or has diarrhea. 4. Develops drainage from the affected ear. 5. Has any new problem that may be related to the medicine prescribed. RETURN TO THE ED IF: 1. You or your child has a severe headache or pain around the ear. 2. You or your child notice swelling around the ear. 3. You or your child has a seizure (convulsion), twitching of the facial muscles, or passes out. 4. You or your child is dizzy, has a stiff neck, or cannot walk or talk normally. 5. Your child becomes more irritable or listless (not interested in his or her surroundings, does not get soothed by you holding him or her). Maty Anders APRN.[facility] 11/30/2023 6:49 PM Signed Subjective Ear Pain Associated symptoms include congestion (due to allergies). Pertinent negatives include no coughing, fever, myalgias or sore throat. Piyush Gudino is a 18 year old male who presents with right ear feeling muffled, having trouble hearing, for the past 5 days. He has had recent nasal congestion due to allergies. He has not had a fever He has not taken any medications at home for this symptom. Review of Systems Constitutional: Negative for fever and malaise/fatigue. HENT: Positive for congestion (due to allergies) and hearing loss. Negative for ear discharge, ear pain and sore throat. Respiratory: Negative for cough. Cardiovascular: Negative. Musculoskeletal: Negative for myalgias. BP 118/68 Pulse 90 Temp 36.6 ?C (97.9 ?F) Resp 16 Wt 76.7 kg (169 lb 1.5 oz) SpO2 97% PAST MEDICAL HISTORY Diagnosis Date Anxiety Asthma Eczema mild Hayfever NEGATIVE MEDICAL HISTORY normal color vision Vesicoureteral reflux, unspecified or without reflux nephropathy 200405 grade 2 PAST SURGICAL HISTORY Procedure Laterality Date CHG CIRCUMCISION 04/18/07 ALLERGIES Patient has no known allergies. MEDICATIONS dexmethylphenidate XR (FOCALIN XR) 15 mg biphasic capsule Take 1 capsule by mouth every morning for 90 days. melatonin 10 mg tab Take 0.5 tablets by mouth daily at bedtime. propranolol (INDERAL) 10 mg tablet 1 tablet administered po 30 to 60 minutes prior to anxiety-provoking situation. May use up to 3 times dper day maximum. Please provide 2 labeled containers. sertraline (ZOLOFT) 100 mg tablet TAKE ONE AND ONE-HALF TABLETS ONCE DAILY hydrOXYzine HCl (ATARAX) 25 mg tablet Take 1 tablet by mouth three times daily as needed for anxiety. albuterol HFA (PROAIR HFA) 90 mcg/actuation inhaler Inhale 2 Puffs as instructed every 4 hours as needed for wheezing/shortness of breath. amoxicillin (AMOXIL) 875 mg tablet Take 1 tablet by mouth two times a day for 7 days. FAMILY HISTORY Adopted: Yes Problem Relation Age of Onset other (unknown) Other patient is adopted Social History Tobacco Use Smoking status: Never Passive exposure: Never Smokeless tobacco: Never Vaping Use Vaping Use: Never used Obj (more content not included)... Normal [facility] Vital Signs Date Time Vital Sign Value Performing Clinician Valery sanchez 10-10-2024 08:24-0400 Body height 160.8 cm Dimple Byers MD Work Phone: [facility] 10-10-2024 08:24-0400 Body mass index (BMI) [Ratio] 30.1 kg/m2 Dimple Byers MD Work Phone: [facility] 10-10-2024 08:24-0400 Body temperature 97.81 [degF] Dimple Byers MD Work Phone: [facility] 10-10-2024 08:24-0400 Body weight 77.84 kg Dimple Byers MD Work Phone: [facility] 10-10-2024 08:24-0400 Diastolic blood pressure 66 mm[Hg] Dimple Byers MD Work Phone: [facility] 10-10-2024 08:24-0400 Heart rate 86 /min Dimple Byers MD Work Phone: [facility] 10-10-2024 08:24-0400 Respiratory rate 16 /min Dimple Byers MD Work Phone: [facility] 10-10-2024 08:24-0400 Systolic blood pressure 114 mm[Hg] Dimple Byers MD Work Phone: [facility] 08-01-2024 11:50-0500 Body mass index (BMI) [Ratio] 30.3 kg/m2 Flex Ray APRN.CLOTH HANDLER Work Phone: [facility] 08-01-2024 11:50-0500 Body temperature 97.9 [degF] Flex Ray APRN.CLOTH HANDLER Work Phone: [facility] 08-01-2024 11:50-0500 Body weight 77.6 kg Flex Ray APRN.CLOTH HANDLER Work Phone: [facility] 08-01-2024 11:50-0500 Diastolic blood pressure 72 mm[Hg] Flex Cory BUSINESS ANALYTICS FACULTY MEMBER.CLOTH HANDLER Work Phone: [facility] 08-01-2024 11:50-0500 Heart rate 98 /min Flex Cory BUSINESS ANALYTICS FACULTY MEMBER.CLOTH HANDLER Work Phone: [facility] 08-01-2024 11:50-0500 Respiratory rate 16 /min Flex Cory BUSINESS ANALYTICS FACULTY MEMBER.CLOTH HANDLER Work Phone: [facility] 08-01-2024 11:50-0500 SaO2% (BldA) [Mass fraction] 99 % Flex Cory BUSINESS ANALYTICS FACULTY MEMBER.CLOTH HANDLER Work Phone: [facility] 08-01-2024 11:50-0500 Systolic blood pressure 122 mm[Hg] Flex Cory BUSINESS ANALYTICS FACULTY MEMBER.CLOTH HANDLER Work Phone: [facility] 07-24-2024 18:12-0500 Body mass index (BMI) [Ratio] 30.23 kg/m2 Laina Moomaw BUSINESS ANALYTICS FACULTY MEMBER.CLOTH HANDLER Work Phone: [facility] 07-24-2024 18:12-0500 Body temperature 97.9 [degF] Laina Moomaw BUSINESS ANALYTICS FACULTY MEMBER.CLOTH HANDLER Work Phone: [facility] 07-24-2024 18:12-0500 Body weight 77.4 kg Laina Moomaw BUSINESS ANALYTICS FACULTY MEMBER.CLOTH HANDLER Work Phone: [facility] 07-24-2024 18:12-0500 Diastolic blood pressure 82 mm[Hg] Laina Moomaw BUSINESS ANALYTICS FACULTY MEMBER.CLOTH HANDLER Work Phone: [facility] 07-24-2024 18:12-0500 Heart rate 100 /min Laina Moomaw BUSINESS ANALYTICS FACULTY MEMBER.CLOTH HANDLER Work Phone: [facility] 07-24-2024 18:12-0500 Respiratory rate 18 /min Laina Moomaw BUSINESS ANALYTICS FACULTY MEMBER.CLOTH HANDLER Work Phone: [facility] 07-24-2024 18:12-0500 SaO2% (BldA) [Mass fraction] 98 % Laina Moomaw BUSINESS ANALYTICS FACULTY MEMBER.CLOTH HANDLER Work Phone: [facility] 07-24-2024 18:12-0500 Systolic blood pressure 128 mm[Hg] Laina Ochoa APRN.CLOTH HANDLER Work Phone: [facility] 07-10-2024 10:10-0500 Body mass index (BMI) [Ratio] 30.07 kg/m2 Graeme Gutierrez APRN.CLOTH HANDLER Work Phone: [facility] 07-10-2024 10:10-0500 Body temperature 97.7 [degF] Graeme Gutierrez APRN.CLOTH HANDLER Work Phone: [facility] 07-10-2024 10:10-0500 Body weight 77 kg Graeme Gutierrez APRN.CLOTH HANDLER Work Phone: [facility] 07-10-2024 10:10-0500 Diastolic blood pressure 82 mm[Hg] Graeme Gutierrez APRN.CLOTH HANDLER Work Phone: [facility] 07-10-2024 10:10-0500 Heart rate 110 /min Graeme Gutierrez APRN.CLOTH HANDLER Work Phone: [facility] 07-10-2024 10:10-0500 Respiratory rate 16 /min Graeme Gutierrez APRN.CLOTH HANDLER Work Phone: [facility] 07-10-2024 10:10-0500 SaO2% (BldA) [Mass fraction] 97 % Graeme Gutierrez APRN.CLOTH HANDLER Work Phone: [facility] 07-10-2024 10:10-0500 Systolic blood pressure 128 mm[Hg] Graeme Gutierrez APRN.CLOTH HANDLER Work Phone: [facility] 07-06-2024 15:59-0500 Body mass index (BMI) [Ratio] 29.45 kg/m2 Rosangela Johns PA Work Phone: [facility] 07-06-2024 15:59-0500 Body temperature 98.2 [degF] Rosangela Johns PA Work Phone: [facility] 07-06-2024 15:59-0500 Body weight 75.4 kg Krislyn Aberegg PA Work Phone: [facility] 07-06-2024 15:59-0500 Diastolic blood pressure 80 mm[Hg] Krislyn Aberegg PA Work Phone: [facility] 07-06-2024 15:59-0500 Heart rate 94 /min Krislyn Aberegg PA Work Phone: [facility] 07-06-2024 15:59-0500 Respiratory rate 16 /min Krislyn Aberegg PA Work Phone: [facility] 07-06-2024 15:59-0500 SaO2% (BldA) [Mass fraction] 99 % Krislyn Aberegg PA Work Phone: [facility] 07-06-2024 15:59-0500 Systolic blood pressure 146 mm[Hg] Krislyn Aberegg PA Work Phone: [facility] 04-12-2024 11:13-0400 Body height 160 cm Dimple Byers MD Work Phone: [facility] 04-12-2024 11:13-0400 Body mass index (BMI) [Ratio] 29.41 kg/m2 Dimple Byers MD Work Phone: [facility] 04-12-2024 11:13-0400 Body temperature 97.39 [degF] Dimple Byers MD Work Phone: [facility] 04-12-2024 11:13-0400 Body weight 75.3 kg Dimple Byers MD Work Phone: [facility] 04-12-2024 11:13-0400 Diastolic blood pressure 66 mm[Hg] Dimple Byers MD Work Phone: [facility] 04-12-2024 11:13-0400 Heart rate 80 /min Dimple Byers MD Work Phone: [facility] 04-12-2024 11:13-0400 Respiratory rate 16 /min Dimple Byers MD Work Phone: [facility] 04-12-2024 11:13-0400 Systolic blood pressure 114 mm[Hg] Dimple Byers MD Work Phone: [facility] 11-30-2023 18:39-0400 Body temperature 97.9 [degF] Maty Praisler-Wood BUSINESS ANALYTICS FACULTY MEMBER.CLOTH HANDLER Work Phone: [facility] 11-30-2023 18:39-0400 Body weight 76.7 kg Maty Praisler-Wood BUSINESS ANALYTICS FACULTY MEMBER.CLOTH HANDLER Work Phone: [facility] 11-30-2023 18:39-0400 Diastolic blood pressure 68 mm[Hg] Maty Praisler-Wood BUSINESS ANALYTICS FACULTY MEMBER.CLOTH HANDLER Work Phone: [facility] 11-30-2023 18:39-0400 Heart rate 90 /min Maty Praisler-Wood BUSINESS ANALYTICS FACULTY MEMBER.CLOTH HANDLER Work Phone: [facility] 11-30-2023 18:39-0400 Respiratory rate 16 /min Maty Praisler-Wood BUSINESS ANALYTICS FACULTY MEMBER.CLOTH HANDLER Work Phone: [facility] 11-30-2023 18:39-0400 SaO2% (BldA) [Mass fraction] 97 % Maty Praisler-Wood BUSINESS ANALYTICS FACULTY MEMBER.CLOTH HANDLER Work Phone: [facility] 11-30-2023 18:39-0400 Systolic blood pressure 118 mm[Hg] Maty Praisler-Wood BUSINESS ANALYTICS FACULTY MEMBER.CLOTH HANDLER Work Phone: [facility] 06-02-2023 08:26-0500 Body height 160 cm Dimple Byers MD Work Phone: [facility] 06-02-2023 08:26-0500 Body mass index (BMI) [Percentile] Per age and sex 94.22 % Dimple Byers MD Work Phone: [facility] 06-02-2023 08:26-0500 Body temperature 97.59 [degF] Dimple Byers MD Work Phone: [facility] 06-02-2023 08:26-0500 Body weight 74.03 kg Dimple Byers MD Work Phone: [facility] 11-15-2023 08:26-0500 Diastolic blood pressure 74 mm[Hg] Dimple Byers MD Work Phone: [facility] 06-02-2023 08:26-0500 Heart rate 82 /min Dimple Byers MD Work Phone: [facility] 06-02-2023 08:26-0500 Respiratory rate 16 /min Dimple Byers MD Work Phone: [facility] 06-02-2023 08:26-0500 Systolic blood pressure 118 mm[Hg] Dimple Byers MD Work Phone: [facility] 03-30-2023 16:14-0400 Body weight 71.44 kg Luis Silver MD Work Phone: [facility] 03-30-2023 16:14-0400 Diastolic blood pressure 43 mm[Hg] Luis Silver MD Work Phone: [facility] 03-30-2023 16:14-0400 Heart rate 82 /min Luis Silver MD Work Phone: [facility] 03-30-2023 16:14-0400 Respiratory rate 16 /min Luis Silver MD Work Phone: [facility] 03-30-2023 16:14-0400 Systolic blood pressure 134 mm[Hg] Luis Silver MD Work Phone: [facility] 03-18-2022 09:19-0400 Diastolic blood pressure 72 mm[Hg] Dimple Byers MD Work Phone: [facility] 03-18-2022 09:19-0400 Systolic blood pressure 125 mm[Hg] Dimple Byers MD Work Phone: [facility] 03-18-2022 09:06-0400 Body height 159 cm Dimple Byers MD Work Phone: [facility] 03-18-2022 09:06-0400 Body mass index (BMI) [Percentile] Per age and sex 92.3 % Dimple Byers MD Work Phone: [facility] 03-18-2022 09:06-0400 Body temperature 97.3 [degF] Dimple Byers MD Work Phone: [facility] 03-18-2022 09:06-0400 Body weight 68.67 kg Dimple Byers MD Work Phone: [facility] 03-18-2022 09:06-0400 Heart rate 76 /min Dimple Byers MD Work Phone: [facility] 03-18-2022 09:06-0400 Respiratory rate 12 /min Dimple Byers MD Work Phone: [facility] Encounters Encounter Date Encounter Type Care Provider Facility Start: 04-20-2025 ambulatory Dimple Anderson Facilit y:[facility] Start: 04-13-2025 End: 04-13-[address] Dimple Anderson MD Work Phone: -[facility] Start: 04-13-2025 End: 04-13-[address] Dimple Anderson MD -[facility] Start: 04-13-2025 End: 04-13-2025 ambulatory Dimple Anderson Facility:[facility] Start: 01-02-2025 End: 01-02-2025 Refill Dimple Byers MD Work Phone: [facility] [place] Comment on above: Refill Request Start: 10-10-2024 End: 10-10-2024 ambulatory DIMPLE BYERS Facility:[facility] Start: 10-10-2024 End: 10-10-2024 Patient encounter procedure Dimple Byers MD Work Phone: [facility] [place] Comment on above: Generalized anxiety disorder (Primary Dx); ADHD, predominantly inattentive type; Panic disorder without agoraphobia Start: 09-20-2024 End: 09-21-2024 Refill Dimple Byers MD Work Phone: [facility] [place] Comment on above: Refill Request Start: 08-01-2024 End: 08-01-2024 ambulatory DIMPLE BYERS Facility:[facility] Start: 08-01-2024 End: 08-01-2024 Patient encounter procedure Flex Ray APRN.CNP Work Phone: [facility] Comment on above: Acute otitis media, right (Primary Dx); Dysfunction of both eustachian tubes Start: 07-24-2024 End: 07-24-2024 ambulatory [facility] Facility:[facility] Start: 07-24-2024 End: 07-24-2024 Patient encounter procedure Laina Ochoa APRN.CLOTH HANDLER Work Phone: [facility] Comment on above: Acute cough (Primary Dx) Start: 07-10-2024 End: 07-10-2024 ambulatory [facility] Facility:[facility] Start: 07-10-2024 End: 07-10-2024 Patient encounter procedure Graeme Gutierrez BUSINESS ANALYTICS FACULTY MEMBER.CLOTH HANDLER Work Phone: [facility] Comment on above: Acute cough (Primary Dx) Opened In Error Start: 07-06-2024 End: 07-06-2024 Patient encounter procedure Rosangela NAVARRO Work Phone: [facility] Comment on above: Sinobronchitis (Prim lucretia Dx); Sore throat; Acute cough Start: 07-06-2024 End: 07-06-2024 ambulatory ROSANGELA JOHNS Facility:[facility] Start: 07-06-2024 End: 07-06-2024 Subsequent hospital visit by physician X[facility] [place] Work Phone: Radiology Comment on above: Acute cough [R05.1] Start: 05-26-2024 End: 05-26-2024 Refill Dimple Byers MD Work Phone: [facility] [place] Comment on above: Refill Request Start: 04-12-2024 End: 04-12-2024 ambulatory DIMPLE Yana [place] Facility:[facility] Start: 04-12-2024 End: 04-12-2024 Patient encounter procedure Dimple Byers MD Work Phone: [facility] [place] Comment on above: ADHD, predominantly inattentive type (Primary Dx); Generalized anxiety disorder; Panic disorder without agoraphobia Start: 04-03-2024 End: 04-03-2024 Refill Luis Silver MD Work Phone: [facility] Comment on above: Refill Request Start: 03-24-2024 End: 03-24-2024 Refill Dimple Byers MD Work Phone: [facility] [place] Comment on above: Refill Request; Open ed In Error Start: 12-10-2023 Refill Dimple Byers MD Work Phone: [facility] [place] Comment on above: Refill Request Start: 11-30-2023 End: 11-30-2023 ambulatory DIMPLE BYERS Facility:[facility] Start: 11-30-2023 End: 11-30-2023 Patient encounter procedure Maty Anders APRN.CNP Work Phone: [facility] Comment on above: Other acute nonsuppu rative otitis media of right ear, recurrence not specified (Primary Dx) Start: 09-29-2023 Refill Dimple Byers MD Work Phone: [facility] Comment on above: Refill Request Start: 06-02-2023 End: 06-02-2023 Patient encounter procedure Dimple Byers MD Work Phone: [facility] [place] Comment on above: ADHD, predominantly inattentive type (Primary Dx); Encounter for immunization; Generalized anxiety disorder; Panic disorder without agoraphobia; Learning disability Start: 05-31-2023 Refill Dimple Byers MD Work Phone: [facility] [place] Comment on above: Refill Request Start: 03-30-2023 End: 03-30-2023 Patient encounter procedure Luis Silver MD Work Phone: [facility] Comment on above: Generalized anxiety disorder (Primary Dx); Panic disorder without agoraphobia; ADHD, predominantly inattentive type; Insomnia due to other mental disorder Start: 02-18-2023 Refill Dimple Byers MD Work Phone: [facility] Comment on above: Refill Request Start: 02-04-2023 Refill Dimple Byers MD Work Phone: [facility] Comment on above: Refill Request Start: 05-26-2022 Refill Dimple Byers MD Work Phone: [facility] Comment on above: Refill Request Start: 03-18-2022 End: 03-18-2022 Patient encounter procedure Dimple Byers MD Work Phone: [facility] [place] Comment on above: Encounter for routin e child health examination w/o abnormal findings (Primary Dx); Screening for depression; ADHD, predominantly inattentive type; Generalized anxiety disorder Start: 03-18-2022 End: 03-18-2022 Patient encounter status Dimple Byers MD Work Phone: [facility] [place] Start: 02-21-2022 Refill Dimple Byers MD Work Phone: [facility] [place] Comment on above: Refill Request Start: 12-12-2021 End: 12-12-2021 [facility] Luis Silver MD Work Phone: [facility] Comment on above: Generalized anxiety disorder (Primary Dx); Panic disorder without agoraphobia; ADHD, predominantly inattentive type; Learning disability; Insomnia due to other mental disorder Start: 12-01-2021 Refill Annita Méndez MD Work Phone: [facility] Comment on above: Refill Request Procedures Date Procedure Procedure Detail Performing Clinician Start: 04-13-2025 Electrophoresis: [id number] Dr. Dimple Anderson MD Work Phone: Start: 04-13-2025 Electrophoresis: [id number] Dr. Dimple Anderson MD Work Phone: Start: 04-13-2025 Electrophoresis: ramya ma globulin Dr. Dimple Anderson MD Work Phone: Start: 07-06-2024 Radiologic exam ches t 2 views Rosangela Johns PA Work Phone: Start: 07-06-2024 STREP A MOLECULAR (POC) Graeme Gutierrez APRN.CLOTH HANDLER Work Phone: Start: 06-02-2023 INFLUENZA VACCINE, A GE 6 MO - 64 YR, QUADRIVALENT (AFLURIA, FLULAVAL, FLUZONE) Dimple Byers MD Work Phone: Start: 06-02-2023 Menacwy-tt conj vacc serogroups acwy for im use Dimple Byers MD Work Phone: Start: 03-18-2022 Adult depression scr eening assessment Dimple Byers MD Work Phone: Start: 12-12-2021 Adult depression scr eening assessment Luis Silver MD Work Phone: Start: 08-18-2021 Adult depression scr eening assessment Annita Méndez MD Work Phone: Plan of Treatment Date Care Activity Detail Author Start: 11-20-2025 Urine microalbumin profile [facility] Start: 10-10-2025 Annual PCP Team Evaporative Cooler Installer levy Disease Visit Annual PCP Team Chronic Disease Visit [facility] Start: 10-10-2025 Asthma Control Test Asthma Control T est [facility] Start: 04-12-2025 Annual PCP Team Evaporative Cooler Installer levy Disease Visit Annual PCP Team Chronic Disease Visit [facility] Start: 04-12-2025 Asthma Control Test Asthma Control T est [facility] Start: 03-19-2025 Influenza vaccination Influenz a Vaccine (Season Ended) [facility] Start: 10-10-2024 End: 10-10-2024 Patient encounter procedure 10/10/2024 9:00 AM EDT Office Visit [facility] [place] [address] [place], [place] [id number] Dimple Byers MD [address] [facility] [place] [id number] medication check [facility] Comment on above: medication check Start: 06-02-2024 Annual PCP Team Evaporative Cooler Installer levy Disease Visit Annual PCP Team Chronic Disease Visit [facility] Start: 04-12-2024 End: 04-12-2024 Patient encounter procedure 04/12/2024 11:30 AM EDT Office Visit [facility] [place] [address] [facility] [place], [place] [id number] Dimple Byers MD [address] [facility] [place] [id number] physical [facility] Comment on above: physical Start: 03-19-2024 Covid-19 Vaccine () Covid-19 Vaccine ( season) [facility] Start: 03-19-2024 Covid-19 Vaccine ( season) Covid-19 Vaccine ( season) [facility] Start: 03-19-2024 Influenza vaccination Influenza Vacc ine (#1) [facility] Start: 10-13-2023 ANNUAL PCP TEAM METAL FURNITURE POLISHER LEVY DISEASE VISIT ANNUAL PCP TEAM CHRONIC DISEASE VISIT [facility] Start: 07-19-2023 Behavioral Health Screening Behavioral Health Screening [facility] Start: 07-19-2023 [facility] Start: 03-26-2023 ASTHMA ACTION PLAN ASTHMA ACTION VITALIY N [facility] Start: 03-19-2023 Covid-19 Vaccine () Covid-19 Vaccine () [facility] Start: 03-19-2023 Influenza vaccination C [facility] Start: 03-18-2023 Adult depression screening assessment DEPRESSION SCREENING [facility] Start: 03-18-2023 ASTHMA CONTROL TEST ASTHMA CONTROL T EST [facility] Start: 12-12-2022 Adult depression screening assessment DEPRESSION SCREENING [facility] Start: 2022 Depression Screening Depression Scre ening [facility] Start: 2022 HEPATITIS C SCREENING HEPATITIS C [facility] Start: 2022 Hepatitis C screening Hepatitis C [facility] Start: 2022 HIV SCREENING HIV SCREENING [facility] Start: 2022 HIV screening HIV Screening [facility] Start: 2022 SPIROMETRY SPIROMETRY [facility] Start: 08-18-2022 Adult depression screening assessment DEPRESSION SCREENING [facility] Start: 07-19-2022 DEPRESSION [facility]ESSMENT [facility] Start: 03-25-2022 ASTHMA CONTROL TEST ASTHMA CONTROL T EST [facility] Start: 03-19-2022 Influenza vaccination INFLUENZA (#1) [facility] Start: 05-01-2021 COVID-19 VACCINE (3 - Booster for Pfizer series) COVID-19 VACCINE (3 - Booster for Pfizer series) [facility] Start: 01-24-2021 COVID-19 VACCINE (3 - Booster for Pfizer series) COVID-19 VACCINE (3 - Booster for Pfizer series) [facility] Start: 07-09-2021 COVID-19 VACCINE (3 - Pfizer series) COVID-19 VACCINE (3 - Pfizer series) [facility] Start: 2020 Meningococcal B Vacc ine (1 of 2 - Standard) Meningococcal B Vaccine (1 of 2 - Standard) [facility] Start: 2020 Meningococcal B Vacc ine: Consider Based On Risk (1 of 2 - Patient Seeks Protection) Meningococcal B Vaccine: Consider Based On Risk (1 of 2 - Patient Seeks Protection) [facility] Start: 2020 MENINGOCOCCAL B: Consider based on risk (1 of 2 - Patient Seeks Protection) MENINGOCOCCAL B: Consider based on risk (1 of 2 - Patient Seeks Protection) [facility] Start: 2020 MENINGOCOCCAL CONJUG ATE (2 - 2-dose series) MENINGOCOCCAL CONJUGATE (2 - 2-dose series) [facility] Start: 2020 Meningococcal Conjug ate Vaccine (2 - 2-dose series) Meningococcal Conjugate Vaccine (2 - 2-dose series) [facility] Start: 10-31-2019 HPV Vaccine (1 - Mal e 3-dose series) HPV Vaccine (1 - Male 3-dose series) [facility] Start: 2018 PEDS TO ADULT TRANSI TION ANNUAL ASSESSMENT PEDS TO ADULT TRANSITION ANNUAL ASSESSMENT [facility] Start: 10-31-2015 HPV VACCINE (1 - Mal e 2-dose series) HPV VACCINE (1 - Male 2-dose series) [facility] Start: 2014 MENINGOCOCCAL B: Consider based on risk (1 of 2 - Risk Bexsero 2-dose series) MENINGOCOCCAL B: Consider based on risk (1 of 2 - Risk Bexsero 2-dose series) [facility] Start: 2013 HPV VACCINE (1 - Mal e 2-dose series) HPV VACCINE (1 - Male 2-dose series) [facility] Immunizations Immunization Date Immunization Notes Care Provider Fa ines 06-02-2023 influenza, injectabl e, quadrivalent, contains preservative Dimple Byers MD Work Phone: [facility] 06-02-2023 meningococcal (MenACWY-TT) vaccine, quadrivalent (MENQUADFI) Dimple Byers MD Work Phone: [facility] 06-02-2023 influenza virus vacc ine, unspecified formulation Dimple Byers MD Work Phone: [facility] 03-25-2021 influenza, injectabl e, quadrivalent, contains preservative Annita Méndez MD Work Phone: [facility] 03-25-2021 influenza virus vacc ine, unspecified formulation Luis Silver MD Work Phone: [facility] 11-29-2020 COVID-19 vaccine, ag e 12+ yr (PFIZER-BIONTECH - PURPLE TOP) Annita Méndez MD Work Phone: [facility] Work Phone: 11-08-2020 COVID-19 vaccine, ag e 12+ yr (PFIZER-BIONTECH - PURPLE TOP) Annita Méndez MD Work Phone: [facility] Work Phone: 03-26-2020 influenza, injectabl e, quadrivalent, contains preservative Annita Méndez MD Work Phone: [facility] 06-20-2019 influenza, injectabl e, quadrivalent, preservative free Annita Méndez MD Work Phone: [facility] 05-23-2018 influenza, injectabl e, quadrivalent, contains preservative Annita Méndez MD Work Phone: [facility] Work Phone: 04-27-2016 influenza, injectabl e, quadrivalent, preservative free Annita Méndez MD Work Phone: [facility] 11-21-2015 meningococcal polysaccharide (groups A, C, Y and W-135) diphtheria toxoid conjugate vaccine (MCV4P) Annita Méndez MD Work Phone: [facility] 11-21-2015 tetanus toxoid, redu felicia diphtheria toxoid, and acellular pertussis vaccine, adsorbed Annita Méndez MD Work Phone: [facility] 05-07-2014 influenza, injectabl e, quadrivalent, preservative free Annita Méndez MD Work Phone: [facility] Work Phone: 06-16-2013 influenza virus vacc ine, unspecified formulation Annita Méndez MD Work Phone: [facility] 05-19-2011 influenza virus vacc ine, unspecified formulation Annita Méndez MD Work Phone: [facility] Work Phone: 11-18-2009 diphtheria, tetanus toxoids and acellular pertussis vaccine Annita Méndez MD Work Phone: [facility] Work Phone: 11-18-2009 measles, mumps and rubella virus vaccine Annita Méndez MD Work Phone: [facility] Work Phone: 11-18-2009 poliovirus vaccine, inactivated Annita Méndez MD Work Phone: [facility] Work Phone: 05-14-2008 influenza virus vacc ine, unspecified formulation Annita Méndez MD Work Phone: [facility] Work Phone: 05-10-2007 influenza virus vacc ine, unspecified formulation Annita Méndez MD Work Phone: [facility] Work Phone: 02-23-2007 haemophilus influenz ae type b vaccine, HbOC conjugate Annita Méndez MD Work Phone: [facility] 02-23-2007 pneumococcal conjuga te vaccine, 7 valent Annita Méndez MD Work Phone: [facility] 02-23-2007 varicella virus vaccine Annita Méndez MD Work Phone: [facility] 04-30-2006 diphtheria, tetanus toxoids and pertussis vaccine Annita Méndez MD Work Phone: [facility] Work Phone: 12-04-2005 varicella virus vaccine Annita Méndez MD Work Phone: [facility] Work Phone: 11-02-2005 haemophilus influenz ae type b vaccine, HbOC conjugate Annita Méndez MD Work Phone: [facility] Work Phone: 11-02-2005 measles, mumps and rubella virus vaccine Annita Méndez MD Work Phone: [facility] Work Phone: 04-27-2005 diphtheria, tetanus toxoids and pertussis vaccine Annita Méndez MD Work Phone: [facility] Work Phone: 04-27-2005 hepatitis B vaccine, pediatric or pediatric/adolescent dosage Annita Méndez MD Work Phone: [facility] Work Phone: 04-27-2005 poliovirus vaccine, inactivated Annita Méndez MD Work Phone: [facility] Work Phone: 02-27-2005 diphtheria, tetanus toxoids and pertussis vaccine Annita Méndez MD Work Phone: [facility] Work Phone: 02-27-2005 poliovirus vaccine, inactivated Annita Méndez MD Work Phone: [facility] Work Phone: 01-01-2005 diphtheria, tetanus toxoids and pertussis vaccine Annita Méndez MD Work Phone: [facility] Work Phone: 01-01-2005 poliovirus vaccine, inactivated Annita Méndez MD Work Phone: [facility] Work Phone: 2004 hepatitis B vaccine, pediatric or pediatric/adolescent dosage Annita Méndez MD Work Phone: [facility] Work Phone: 2004 hepatitis B vaccine, pediatric or pediatric/adolescent dosage Annita Méndez MD Work Phone: [facility] Work Phone: Payers Date Payer Category Payer Self-pay 2023 Unknown [id number] 2021 Private Health Insurance REHAN MICHAUD OAP [id number] 2021-Present [phone] [id number] [place] [address] Open Access [id number] 2021 Private Health Insurance [id number] Unknown [id number] Unknown [id number] Social History Date Type Detail Facility Start: 11-20-2011 End: 03-18-2022 Tobacco smoking status NHIS Never smoked tobacco [facility] Start: 08-18-2021 End: 10-10-2024 Alcohol intake Not Asked [facility] Start: 03-03-2021 End: 03-18-2022 History SDOH Physical Activity DPW [address] [facility] Start: 03-03-2021 End: 03-18-2022 History SDOH Physical Activity MPS [address] [facility] Start: 03-03-2021 End: 03-18-2022 History SDOH Financial [address] [facility] Start: 03-03-2021 End: 03-18-2022 History SDOH Food Worry [address] [facility] Start: 2004 Sex Assigned At Male C [facility] Start: 11-20-2011 End: 03-18-2022 Tobacco use and exposure Smokeless tobacco non-user [facility] Start: 02-13-2022 End: 03-18-2022 Exposure to SARS-CoV-2 (event) Not sure [facility] Start: 10-12-2022 End: 03-30-2023 History of Social function [facility] Start: 10-12-2022 End: 03-30-2023 Tobacco use panel [facility] How hard is it for y ou to pay for the very basics like food, housing, medical care, and heating Not hard at all [facility] (I/We) worried wheth er (my/our) food would run out before (I/we) got money to buy more. Never true [facility] In the past 12 month s, was there a time when you were not able to pay the mortgage or rent on time? No [facility] Start: 09-26-2020 Gender identity Identifies as male gender (finding) [facility] Start: 08-18-2021 Sexual orientation Homosexual (findi ng) [facility] Work Phone: Tobacco smoking stat us NHIS Unknown if ever smoked [facility] Work Phone: NEGATED: Highlighted rowStart: CANDYF History of tobacco use Passive smoker [facility] Functional Status Date Assessment Result Facility 12-24-2014 Are you deaf, or do you have serious difficulty hearing No 12/24/2014 2:53 PM EDT Bere Greene MA No [facility] 12-24-2014 Are you blind, or do you have serious difficulty seeing, even when wearing glasses No 12/24/2014 2:53 PM EDT Bere Greene MA No [facility] 12-24-2014 Do you have serious difficulty walking or climbing stairs No 12/24/2014 2:53 PM EDT Bere Greene MA No [facility] 12-24-2014 Do you have difficul ty dressing or bathing No 12/24/2014 2:53 PM EDT Bere Greene MA [facility] Mental Status Date Assessment Result Facility 12-24-2014 Because of a physica l, mental, or emotional condition, do you have serious difficulty concentrating, remembering, or making decisions No 12/24/2014 2:53 PM EDT Bere Greene MA No [facility] Clinical Notes 11-08-2014 to 01-02-2025 Telephone Encounter - Dimple Byers MD - 01/02/2025 7:49 PM EDTTelephone Encounter - Dimple Byers MD - 01/02/2025 7:49 PM EDTTelephone Encounter - Rosa Guadalupe RN - 01/02/2025 8:09 AM EDT Note Date & Type Note Facility 01-02-2025 Telephone encounter Note Patient's request for medication is as follows Requested Prescriptions Signed Prescriptions Disp Refills dexmethylphenidate XR (FOCALIN XR) 15 mg biphasic capsule 30 capsule 0 Sig: Take 1 capsule by mouth every morning for 30 days. Patient should start on March 03, 2025. Authorizing Provider: DIMPLE BYERS dexmethylphenidate XR (FOCALIN XR) 15 mg biphasic capsule 30 capsule 0 Sig: Take 1 capsule by mouth once daily for 30 days. Patient should start on February 01, 2025. Authorizing Provider: DIMPLE BYESR dexmethylphenidate XR (FOCALIN XR) 15 mg biphasic capsule 30 capsule 0 Sig: Take 1 capsule by mouth once daily for 30 days. Authorizing Provider: DIMPLE BYERS MD [facility] 01-02-2025 Miscellaneous Notes Patient's request for medication is as follows Requested Prescriptions Signed Prescriptions Disp Refills dexmethylphenidate XR (FOCALIN XR) 15 mg biphasic capsule 30 capsule 0 Sig: Take 1 capsule by mouth every morning for 30 days. Patient should start on March 03, 2025. Authorizing Provider: DIMPLE BYERS dexmethylphenidate XR (FOCALIN XR) 15 mg biphasic capsule 30 capsule 0 Sig: Take 1 capsule by mouth once daily for 30 days. Patient should start on February 01, 2025. Authorizing Provider: DIMPLE BYERS dexmethylphenidate XR (FOCALIN XR) 15 mg biphasic capsule 30 capsule 0 Sig: Take 1 capsule by mouth once daily for 30 days. Authorizing Provider: DIMPLE BYERS MD Last C: greater than one year ago Last ADHD / Med Check visit: 10/10/24 Verify RX Benefits Completed Last medication refill date: 11/17/24 Requesting 30 day supply Retail pharmacy updated: Completed Patient aware RX will be sent to pharmacy. No need to notify patient. Health Maintenance due: HPV Vaccine(1 - Male 3-dose series) Never done Meningococcal B Vaccine(1 of 2 - Standard) Never done Hepatitis C Screening Never done HIV Screening due on 2022 Depression Screening due on 03/18/2023 Asthma Action Plan due on 03/26/2023 Covid-19 Vaccine() due on 03/19/2024 Rosa Guadalupe RN documented in this encounter [facility] 01-02-2025 Telephone encounter Note Last WCC: greater than one year ago Last ADHD / Med Check visit: 10/10/24 Verify RX Benefits Completed Last medication refill date: 11/17/24 Requesting 30 day supply Retail pharmacy updated: Completed Patient aware RX will be sent to pharmacy. No need to notify patient. Health Maintenance due: HPV Vaccine(1 - Male 3-dose series) Never done Meningococcal B Vaccine(1 of 2 - Standard) Never done Hepatitis C Screening Never done HIV Screening due on 2022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 gallop, or rubs. No ectopy. Lungs: clear to auscultation, without rales or wheeze, good air exchange PAST MEDICAL HISTORY Diagnosis Date Anxiety Asthma Eczema mild Hayfever NEGATIVE MEDICAL HISTORY normal color vision Vesicoureteral reflux, unspecified or without reflux nephropathy 200405 grade 2 PAST SURGICAL HISTORY Procedure Laterality Date CHG CIRCUMCISION 04/18/07 ALLERGIES Patient has no known allergies. MEDICATIONS albuterol HFA (PROVENTIL HFA, VENTOLIN HFA) 90 mcg/actuation inhaler Inhale 2 Puffs as instructed every 4 hours as needed for wheezing/shortness of breath. amoxicillin-clavulanate potassium (AUGMENTIN) 875-125 mg per tablet Take 1 tablet by mouth two times a day for 5 days. [START ON 07/26/2024] dexmethylphenidate XR (FOCALIN XR) 15 mg biphasic capsule Take 1 capsule by mouth every morning for 30 days. Patient should start on July 26, 2024. sertraline (ZOLOFT) 100 mg tablet TAKE ONE AND ONE-HALF TABLETS ONCE DAILY melatonin 10 mg tab Take 0.5 tablets by mouth daily at bedtime. propranolol (INDERAL) 10 mg tablet 1 tablet administered po 30 to 60 minutes prior to anxiety-provoking situation. May use up to 3 times dper day maximum. Please provide 2 labeled containers. hydrOXYzine HCl (ATARAX) 25 mg tablet Take 1 tablet by mouth three times daily as needed for anxiety. albuterol HFA (PROAIR HFA) 90 mcg/actuation inhaler Inhale 2 Puffs as instructed every 4 hours as needed for wheezing/shortness of breath. predniSONE (DELTASONE) 10 mg tablet Take 4 tabs daily for 3 days, then 2 tabs daily for 3 days, then 1 tab daily for 3 days with food. benzonatate (TESSALON PERLE) 100 mg capsule Take 1 capsule by mouth three times a day as needed for cough for up to 7 days. dexmethylphenidate XR (FOCALIN XR) 15 mg biphasic capsule Take 1 capsule by mouth every morning for 30 days. dexmethylphenidate XR (FOCALIN XR) 15 mg biphasic capsule Take 1 capsule by mouth every morning for 30 days. Patient should start on June 25, 2024. FAMILY HISTORY Adopted: Yes Problem Relation Age of Onset other (unknown) Other patient is adopted Social History Tobacco Use Smoking status: Never Passive exposure: Never Smokeless tobacco: Never Vaping Use Vaping status: Never Used ASSESSMENT/PLAN: 1. Acute cough - ICD9: 786.2, ICD10: R05.1 - PREDNISONE 10 MG TABLET - BENZONATATE 100 MG CAPSULE Prescription instructions reviewed with patient as applicable. Potential red flag symptoms discussed with the patient. Reviewed appropriate action plan to take if red flag symptoms occur. Patient agreeable to treatment plan. Graeme Gutierrez APRN.[facility] 07-10-2024 History of Present illness Narrative CC: Patient presents with: Cough: nasal congestion on augmentin HPI: Piyush Gudino is a 18 year old male who presents to the office with complaint of cough, nonproductive for a week. Symptoms are staying the same. Associated symptoms includes cough. Denies fever, nausea, vomiting , and diarrhea. Treatments tried include nothing so far. with no relief of symptoms. Sick contacts: unknown. History of asthma, frequent episodes of bronchitis, chronic bronchitis, bronchiectasis or COPD: asthma as a child Smoker: No Seasonal/environmental allergies: No The ROS is otherwise negative. The patient's pmh, medications, allergies, and past visits are reviewed. PHYSICAL EXAM: BP 128/82 Pulse 110 Temp 36.5 C (97.7 F) Resp 16 Wt 77 kg (169 lb 12.1 oz) SpO2 97% BMI 30.07 kg/m General appearance: alert, cooperative, pleasant, in no acute distress Head: Normocephalic Eyes: EOM's intact, conjunctiva pink and moist, no icterus, sclera white, non-injected Ears: Right ear: External ear/canal- Normal, TM - clear with good landmarks. Left ear: External ear/canal- Normal, TM - clear with good landmarks Oropharynx:moist without lesions, No erythema, exudates or tonsillar hypertrophy. Heart: Negative. RRR without obvious murmur, gallop, or rubs. No ectopy. Lungs: clear to auscultation, without rales or wheeze, good air exchange PAST MEDICAL HISTORY Diagnosis Date Anxiety Asthma Eczema mild Hayfever NEGATIVE MEDICAL HISTORY normal color vision Vesicoureteral reflux, unspecified or without reflux nephropathy 200405 grade 2 PAST SURGICAL HISTORY Procedure Laterality Date CHG CIRCUMCISION 04/18/07 ALLERGIES Patient has no known allergies. MEDICATIONS albuterol HFA (PROVENTIL HFA, VENTOLIN HFA) 90 mcg/actuation inhaler Inhale 2 Puffs as instructed every 4 hours as needed for wheezing/shortness of breath. amoxicillin-clavulanate potassium (AUGMENTIN) 875-125 mg per tablet Take 1 tablet by mouth two times a day for 5 days. [START ON 07/26/2024] dexmethylphenidate XR (FOCALIN XR) 15 mg biphasic capsule Take 1 capsule by mouth every morning for 30 days. Patient should start on July 26, 2024. sertraline (ZOLOFT) 100 mg tablet TAKE ONE AND ONE-HALF TABLETS ONCE DAILY melatonin 10 mg tab Take 0.5 tablets by mouth daily at bedtime. propranolol (INDERAL) 10 mg tablet 1 tablet administered po 30 to 60 minutes prior to anxiety-provoking situation. May use up to 3 times dper day maximum. Please provide 2 labeled containers. hydrOXYzine HCl (ATARAX) 25 mg tablet Take 1 tablet by mouth three times daily as needed for anxiety. albuterol HFA (PROAIR HFA) 90 mcg/actuation inhaler Inhale 2 Puffs as instructed every 4 hours as needed for wheezing/shortness of breath. predniSONE (DELTASONE) 10 mg tablet Take 4 tabs daily for 3 days, then 2 tabs daily for 3 days, then 1 tab daily for 3 days with food. benzonatate (TESSALON PERLE) 100 mg capsule Take 1 capsule by mouth three times a day as needed for cough for up to 7 days. dexmethylphenidate XR (FOCALIN XR) 15 mg biphasic capsule Take 1 capsule by mouth every morning for 30 days. dexmethylphenidate XR (FOCALIN XR) 15 mg biphasic capsule Take 1 capsule by mouth every morning for 30 days. Patient should start on June 25, 2024. FAMILY HISTORY Adopted: Yes Problem Relation Age of Onset other (unknown) Other patient is adopted Social History Tobacco Use Smoking status: Never Passive exposure: Never Smokeless tobacco: Never Vaping Use Vaping status: Never Used ASSESSMENT/PLAN: 1. Acute cough - ICD9: 786.2, ICD10: R05.1 - PREDNISONE 10 MG TABLET - BENZONATATE 100 MG CAPSULE Prescription instructions reviewed with patient as applicable. Potential red flag symptoms discussed with the patient. Reviewed appropriate action plan to take if red flag symptoms occur. Patient agreeable to treatment plan. Graeme Gutierrez APRN.CNP documented in this encounter [facility] 07-06-2024 History of Present illness Narrative Radiology Service Progress Note PATIENT NAME: Piyush Gudino DATE OF SERVICE: July 06, 2024 TIME: 4:09 PM PATIENT IDENTITY VERIFICATION COMPLETED USING TWO (2) IDENTIFIERS: Name and Date of confirmed by patient verbally. FALL SCREENING: Has the patient had 2 falls in the last year or 1 fall with injury or currently using an Ambulatory Assistive Device (Walker, Cane, Wheelchair, Crutches, etc.)? No PATIENT GENDER DATA: Male PATIENT RELEVANT IMPLANT DATA REVIEWED: Not Applicable PATIENT PRESENTS WITH AN IMPLANTABLE OR ATTACHED STUDIO ARTIST: No RADIOLOGY DEPARTMENT: General X-ray: Exam(s) Completed: Chest X-Ray PERIPHERAL IV DATA: Not applicable SIGNED BY: BELKYS Alas) July 06, 2024 4:09 PM documented in this encounter [facility] 07-06-2024 Note HNO ID: [id number] Author: RIKKI SHERMAN RT (R) Service: Radiology Author Type: Technologist Type: Progress Notes Filed: 07/06/2024 16:14 Note Text: Radiology Service Progress Note PATIENT NAME: Piyush Gudino DATE OF SERVICE: July 06, 2024 TIME: 4:09 PM PATIENT IDENTITY VERIFICATION COMPLETED USING TWO (2) IDENTIFIERS: Name and Date of confirmed by patient verbally. FALL SCREENING: Has the patient had 2 falls in the last year or 1 fall with injury or currently using an Ambulatory Assistive Device (Walker, Cane, Wheelchair, Crutches, etc.)? No PATIENT GENDER DATA: Male PATIENT RELEVANT IMPLANT DATA REVIEWED: Not Applicable PATIENT PRESENTS WITH AN IMPLANTABLE OR ATTACHED STUDIO ARTIST: No RADIOLOGY DEPARTMENT: General X-ray: Exam(s) Completed: Chest X-Ray PERIPHERAL IV DATA: Not applicable SIGNED BY: RT Evette(R) July 06, 2024 4:09 PM [facility] 07-06-2024 Note HNO ID: [id number] Author: ROSANGELA JOHNS PA Service: ? Author Type: Physician Body Shop Worker Type: Progress Notes Filed: 07/06/2024 16:22 Note Text: This note was created using Diavibe. Subjective Piyush Gudino is a 18 year old male. HPI 18-year-old male presents for cough, sore throat, shortness of breath. Patient states he has had a dry cough for about a week. He has had nasal congestion for about 2 weeks. States he has a little bit of sore throat, mainly with coughing. He does have some shortness of breath with coughing. He has history of asthma, but is no longer on inhalers. He states he feels like he is wheezing a little bit at home occasionally. No fevers. No vomiting or diarrhea. No other complaint. No sick contacts that he is aware of. PAST MEDICAL HISTORY Diagnosis Date Anxiety Asthma Eczema mild Hayfever NEGATIVE MEDICAL HISTORY normal color vision Vesicoureteral reflux, unspecified or without reflux nephropathy 200405 grade 2 PAST SURGICAL HISTORY Procedure Laterality Date CHG CIRCUMCISION 04/18/07 ALLERGIES Patient has no known allergies. MEDICATIONS [START ON 07/26/2024] dexmethylphenidate XR (FOCALIN XR) 15 mg biphasic capsule Take 1 capsule by mouth every morning for 30 days. Patient should start on July 26, 2024. dexmethylphenidate XR (FOCALIN XR) 15 mg biphasic capsule Take 1 capsule by mouth every morning for 30 days. Patient should start on June 25, 2024. sertraline (ZOLOFT) 100 mg tablet TAKE ONE AND ONE-HALF TABLETS ONCE DAILY melatonin 10 mg tab Take 0.5 tablets by mouth daily at bedtime. propranolol (INDERAL) 10 mg tablet 1 tablet administered po 30 to 60 minutes prior to anxiety-provoking situation. May use up to 3 times dper day maximum. Please provide 2 labeled containers. hydrOXYzine HCl (ATARAX) 25 mg tablet Take 1 tablet by mouth three times daily as needed for anxiety. albuterol HFA (PROAIR HFA) 90 mcg/actuation inhaler Inhale 2 Puffs as instructed every 4 hours as needed for wheezing/shortness of breath. dexmethylphenidate XR (FOCALIN XR) 15 mg biphasic capsule Take 1 capsule by mouth every morning for 30 days. FAMILY HISTORY Adopted: Yes Problem Relation Age of Onset other (unknown) Other patient is adopted Social History Tobacco Use Smoking status: Never Passive exposure: Never Smokeless tobacco: Never Vaping Use Vaping status: Never Used Review of Systems Constitutional: Negative for chills and fever. HENT: Positive for congestion and sore throat. Respiratory: Positive for cough, shortness of breath and wheezing. Gastrointestinal: Negative for diarrhea and vomiting. Objective BP 146/80 (BP Site: Left Arm, BP Position: Sitting) Pulse 94 Temp 36.8 ?C (98.2 ?F) Resp 16 Wt 75.4 kg (166 lb 3.6 oz) SpO2 99% BMI 29.45 kg/m? Physical Exam Vitals and nursing note reviewed. Constitutional: General: He is not in acute distress. Appearance: Normal appearance. He is not toxic-appearing. HENT: Right Ear: Tympanic membrane and ear canal normal. Left Ear: Tympanic membrane and ear canal normal. Nose: Mucosal edema and congestion present. Mouth/Throat: Mouth: Mucous membranes are moist. Eyes: Conjunctiva/sclera: Conjunctivae normal. Cardiovascular: Rate and Rhythm: Normal rate and regular rhythm. Pulmonary: Effort: Pulmonary effort is normal. Breath sounds: Normal breath sounds. No wheezing, rhonchi or rales. Skin: General: Skin is warm and dry. Neurological: Mental Status: He is alert. Assessment and Plan ASSESSMENT/PLAN: 1. Sinobronchitis - ICD9: 473.9, 490, ICD10: J32.9, J40 (primary diagnosis) - Will begin treatment with Augmentin 875 mg PO BID for 5 days -Refill albuterol inhaler - Supportive care with plenty of fluids, rest, and analgesia prn. 2. Sore throat - ICD9: 462, ICD10: J02.9 - suspect viral - Group A strep molecular testing negative - Discussed supportive care treatment with fluids, rest and analgesia. - The patient may also use warm salt water gargles, throat lozenges and/or OTC throat spray as needed. - STREP A MOLECULAR (POC) 3. Acute cough - ICD9: 786.2, ICD10: R05.1 - XR CHEST 2V FRONTAL/LAT-no acute radiographic abnormality Diagnosis and treatment plan were discussed and questions were answered to the patient's satisfaction. Pt acknowledged understanding of concepts and follow up plan. Specific signs and symptoms that would indicate the need for higher level of care were discussed in detail warranting prompt ER evaluation. MELANIE Peguero [facility] 07-06-2024 History of Present illness Narrative This note was created using Diavibe. Subjective Piyush Gudino is a 18 year old male. HPI 18-year-old male presents for cough, sore throat, shortness of breath. Patient states he has had a dry cough for about a week. He has had nasal congestion for about 2 weeks. States he has a little bit of sore throat, mainly with coughing. He does have some shortness of breath with coughing. He has history of asthma, but is no longer on inhalers. He states he feels like he is wheezing a little bit at home occasionally. No fevers. No vomiting or diarrhea. No other complaint. No sick contacts that he is aware of. PAST MEDICAL HISTORY Diagnosis Date Anxiety Asthma Eczema mild Hayfever NEGATIVE MEDICAL HISTORY normal color vision Vesicoureteral reflux, unspecified or without reflux nephropathy 200405 grade 2 PAST SURGICAL HISTORY Procedure Laterality Date CHG CIRCUMCISION 04/18/07 ALLERGIES Patient has no known allergies. MEDICATIONS [START ON 07/26/2024] dexmethylphenidate XR (FOCALIN XR) 15 mg biphasic capsule Take 1 capsule by mouth every morning for 30 days. Patient should start on July 26, 2024. dexmethylphenidate XR (FOCALIN XR) 15 mg biphasic capsule Take 1 capsule by mouth every morning for 30 days. Patient should start on June 25, 2024. sertraline (ZOLOFT) 100 mg tablet TAKE ONE AND ONE-HALF TABLETS ONCE DAILY melatonin 10 mg tab Take 0.5 tablets by mouth daily at bedtime. propranolol (INDERAL) 10 mg tablet 1 tablet administered po 30 to 60 minutes prior to anxiety-provoking situation. May use up to 3 times dper day maximum. Please provide 2 labeled containers. hydrOXYzine HCl (ATARAX) 25 mg tablet Take 1 tablet by mouth three times daily as needed for anxiety. albuterol HFA (PROAIR HFA) 90 mcg/actuation inhaler Inhale 2 Puffs as instructed every 4 hours as needed for wheezing/shortness of breath. dexmethylphenidate XR (FOCALIN XR) 15 mg biphasic capsule Take 1 capsule by mouth every morning for 30 days. FAMILY HISTORY Adopted: Yes Problem Relation Age of Onset other (unknown) Other patient is adopted Social History Tobacco Use Smoking status: Never Passive exposure: Never Smokeless tobacco: Never Vaping Use Vaping status: Never Used Review of Systems Constitutional: Negative for chills and fever. HENT: Positive for congestion and sore throat. Respiratory: Positive for cough, shortness of breath and wheezing. Gastrointestinal: Negative for diarrhea and vomiting. Objective BP 146/80 (BP Site: Left Arm, BP Position: Sitting) Pulse 94 Temp 36.8 C (98.2 F) Resp 16 Wt 75.4 kg (166 lb 3.6 oz) SpO2 99% BMI 29.45 kg/m Physical Exam Vitals and nursing note reviewed. Constitutional: General: He is not in acute distress. Appearance: Normal appearance. He is not toxic-appearing. HENT: Right Ear: Tympanic membrane and ear canal normal. Left Ear: Tympanic membrane and ear canal normal. Nose: Mucosal edema and congestion present. Mouth/Throat: Mouth: Mucous membranes are moist. Eyes: Conjunctiva/sclera: Conjunctivae normal. Cardiovascular: Rate and Rhythm: Normal rate and regular rhythm. Pulmonary: Effort: Pulmonary effort is normal. Breath sounds: Normal breath sounds. No wheezing, rhonchi or rales. Skin: General: Skin is warm and dry. Neurological: Mental Status: He is alert. Assessment and Plan ASSESSMENT/PLAN: 1. Sinobronchitis - ICD9: 473.9, 490, ICD10: J32.9, J40 (primary diagnosis) - Will begin treatment with Augmentin 875 mg PO BID for 5 days -Refill albuterol inhaler - Supportive care with plenty of fluids, rest, and analgesia prn. 2. Sore throat - ICD9: 462, ICD10: J02.9 - suspect viral - Group A strep molecular testing negative - Discussed supportive care treatment with fluids, rest and analgesia. - The patient may also use warm salt water gargles, throat lozenges and/or OTC throat spray as needed. - STREP A MOLECULAR (POC) 3. Acute cough - ICD9: 786.2, ICD10: R05.1 - XR CHEST 2V FRONTAL/LAT-no acute radiographic abnormality Diagnosis and treatment plan were discussed and questions were answered to the patient's satisfaction. Pt acknowledged understanding of concepts and follow up plan. Specific signs and symptoms that would indicate the need for higher level of care were discussed in detail warranting prompt ER evaluation. MELANIE Peguero documented in this encounter [facility] 05-26-2024 Telephone encounter Note Patient's request for medication is as follows Requested Prescriptions Signed Prescriptions Disp Refills dexmethylphenidate XR (FOCALIN XR) 15 mg biphasic capsule 30 capsule 0 Sig: Take 1 capsule by mouth every morning for 30 days. Patient should start on July 26, 2024. Authorizing Provider: DIMPLE BYERS dexmethylphenidate XR (FOCALIN XR) 15 mg biphasic capsule 30 capsule 0 Sig: Take 1 capsule by mouth every morning for 30 days. Authorizing Provider: DIMPLE BYERS dexmethylphenidate XR (FOCALIN XR) 15 mg biphasic capsule 30 capsule 0 Sig: Take 1 capsule by mouth every morning for 30 days. Patient should start on June 25, 2024. Authorizing Provider: DIMPLE BYERS MD [facility] 05-26-2024 Miscellaneous Notes Patient's request for medication is as follows Requested Prescriptions Signed Prescriptions Disp Refills dexmethylphenidate XR (FOCALIN XR) 15 mg biphasic capsule 30 capsule 0 Sig: Take 1 capsule by mouth every morning for 30 days. Patient should start on July 26, 2024. Authorizing Provider: DIMPLE BYERS dexmethylphenidate XR (FOCALIN XR) 15 mg biphasic capsule 30 capsule 0 Sig: Take 1 capsule by mouth every morning for 30 days. Authorizing Provider: DIMPLE BYERS dexmethylphenidate XR (FOCALIN XR) 15 mg biphasic capsule 30 capsule 0 Sig: Take 1 capsule by mouth every morning for 30 days. Patient should start on June 25, 2024. Authorizing Provider: DIMPLE BYERS MD Mother calling, [facility] pharmacy only filled prescription for 30 capsules not 90. Is asking for 3 separate 30 day scripts this time. Last WCC: greater than one year ago Last ADHD / Med Check visit: 04/12/24 Verify RX Benefits Completed Last medication refill date: 04/12/24 Requesting 3 month supply Retail pharmacy updated: Completed Patient aware RX will be sent to pharmacy. No need to notify patient. Health Maintenance due: HPV Vaccine(1 - Male 3-dose series) Never done Meningococcal B Vaccine: Consider Based On Risk(1 of 2 - Patient Seeks Protection) Never done Spirometry Never done Hepatitis C Screening Never done HIV Screening due on 2022 Depression Screening due on 03/18/2023 Asthma Action Plan due on 03/26/2023 Influenza Vaccine(1) due on 03/19/2024 Covid-19 Vaccine( season) due on 03/19/2024 Delaney Benítez RN documented in this encounter [facility] 05-26-2024 Telephone encounter Note Mother calling, [facility] pharmacy only filled prescription for 30 capsules not 90. Is asking for 3 separate 30 day scripts this time. Last WCC: greater than one year ago Last ADHD / Med Check visit: 04/12/24 Verify RX Benefits Completed Last medication refill date: 04/12/24 Requesting 3 month supply Retail pharmacy updated: Completed Patient aware RX will be sent to pharmacy. No need to notify patient. Health Maintenance due: HPV Vaccine(1 - Male 3-dose series) Never done Meningococcal B Vaccine: Consider Based On Risk(1 of 2 - Patient Seeks Protection) Never done Spirometry Never done Hepatitis C Screening Never done HIV Screening due on 2022 Depression Screening due on 03/18/2023 Asthma Action Plan due on 03/26/2023 Influenza Vaccine(1) due on 03/19/2024 Covid-19 Vaccine( season) due on 03/19/2024 Delaney Benítez RN [facility] 04-12-2024 History of Present illness Narrative Piyush Gudino is a 18-year-old male with attention deficit hyperactivity disorder, inattentive subtype who additionally has a diagnosis of generalized anxiety disorder and panic disorder who presents to the office today for routine follow-up and management Currently taking Focalin XR 15 mg for ADHD. Patient states he takes the medication 7 days/week. States the medication is a very useful tool and wishes to continue using the medication. Medication is very helpful with organization, sequencing and understanding multiple tasks. Patient has been seen by pediatric psychiatry in the past for his anxiety and panic disorder. Currently taking Zoloft 150 mg by mouth once daily. Patient has not seen psychiatry since March 30, 2023. Patient wishes to continue the Zoloft as he feels that is very helpful with his anxiety. Rarely uses Atarax for panic but does help when he needs it. Recent use was mild panic after a friendship break-up. Patient is currently living at home patient Graduated [employer] school Patient is currently working at [employer]. Flexible hours. Will be attending a cosmetology/nail school in [employer]. ACTIVE PROBLEM LIST Vesicoureteral Reflux, Unspecified Or Without Reflux Nephropathy Mild Intermittent Asthma Without Complication Learning Disability Adhd, Predominantly Inattentive Type Generalized Anxiety Disorder Panic Disorder Without Agoraphobia Insomnia Due to Other Mental Disorder PAST MEDICAL HISTORY Diagnosis Date Anxiety Asthma Eczema mild Hayfever NEGATIVE MEDICAL HISTORY normal color vision Vesicoureteral reflux, unspecified or without reflux nephropathy 200405 grade 2 PAST SURGICAL HISTORY Procedure Laterality Date CHG CIRCUMCISION 04/18/07 ALLERGIES No Known Allergies 04/12/24 1113 BP: 114/66 Pulse: 80 Resp: 16 Temp: 36.3 C (97.4 F) TempSrc: Temporal Weight: 75.3 kg (166 lb) Height: 160 cm (5' 3") GENERAL: Appearance: Neat and clean, Attired in street clothes, Appropriately groomed, and Appropriate hygiene Behavior: organized and cooperative Activity/Motor: normal Interaction: Eye Contact: Yes Interaction: Yes Gait: normal Speech:clear and distinct Yes MOOD: Affect:: Mood Congruent Thought Form: Linear and Organized Content: Rational and future-oriented Suicidal: Denies Perception: Appears intact Cognition: Intact Orientation Insight: Present and adequate Judgment: Present and adequate Additional Observations: No PHQ-9 Score: 0 RAJANI-7 Score: 4 1. ADHD, predominantly inattentive type - ICD9: 314.00, ICD10: F90.0 (primary diagnosis) - DEXMETHYLPHENIDATE ER 15 MG CAPSULE,EXTENDED RELEASE [id number] 2. Generalized anxiety disorder - ICD9: 300.02, ICD10: F41.1 - SERTRALINE 100 MG TABLET 3. Panic disorder without agoraphobia - ICD9: 300.01, ICD10: F41.0 - SERTRALINE 100 MG TABLET Regarding the patient's generalized anxiety disorder, panic disorder and treatment with Zoloft I did provide a 3-month refill. He will need to decide whether he is returning to pediatric psychiatry in [place]. Alternatively we can establish him with the psychiatry provider sees patients in [place] I spent a total of 30 minutes on the date of the service which included preparing to see the patient, [id number] patient care, completing clinical documentation, obtaining and/or reviewing separately obtained history, performing a medically appropriate examination, counseling and educating the patient/family/caregiver, and ordering medications, tests, or procedures. Follow-up 6 months for ADHD Dimple Byers MD [facility] Department of Pediatrics, [facility] documented in this encounter [facility] 04-12-2024 Note HNO ID: [id number] Author: DIMPLE YBERS MD Service: ? Author Type: Physician Type: Progress Notes Filed: 04/12/2024 12:17 Note Text: Piyush Gudino is a 18-year-old male with attention deficit hyperactivity disorder, inattentive subtype who additionally has a diagnosis of generalized anxiety disorder and panic disorder who presents to the office today for routine follow-up and management Currently taking Focalin XR 15 mg for ADHD. Patient states he takes the medication 7 days/week. States the medication is a very useful tool and wishes to continue using the medication. Medication is very helpful with organization, sequencing and understanding multiple tasks. Patient has been seen by pediatric psychiatry in the past for his anxiety and panic disorder. Currently taking Zoloft 150 mg by mouth once daily. Patient has not seen psychiatry since March 30, 2023. Patient wishes to continue the Zoloft as he feels that is very helpful with his anxiety. Rarely uses Atarax for panic but does help when he needs it. Recent use was mild panic after a friendship break-up. Patient is currently living at home patient Graduated [employer] Patient is currently working at [employer]. Flexible hours. Will be attending a cosmetology/nail school in [place] [employer]. ACTIVE PROBLEM LIST Vesicoureteral Reflux, Unspecified Or Without Reflux Nephropathy Mild Intermittent Asthma Without Complication Learning Disability Adhd, Predominantly Inattentive Type Generalized Anxiety Disorder Panic Disorder Without Agoraphobia Insomnia Due to Other Mental Disorder PAST MEDICAL HISTORY Diagnosis Date Anxiety Asthma Eczema mild Hayfever NEGATIVE MEDICAL HISTORY normal color vision Vesicoureteral reflux, unspecified or without reflux nephropathy 200405 grade 2 PAST SURGICAL HISTORY Procedure Laterality Date CHG CIRCUMCISION 04/18/07 ALLERGIES No Known Allergies 04/12/24 1113 BP: 114/66 Pulse: 80 Resp: 16 Temp: 36.3 ?C (97.4 ?F) TempSrc: Temporal Weight: 75.3 kg (166 lb) Height: 160 cm (5' 3") GENERAL: Appearance: Neat and clean, Attired in street clothes, Appropriately groomed, and Appropriate hygiene Behavior: organized and cooperative Activity/Motor: normal Interaction: Eye Contact: Yes Interaction: Yes Gait: normal Speech:clear and distinct Yes MOOD: Affect:: Mood Congruent Thought Form: Linear and Organized Content: Rational and future-oriented Suicidal: Denies Perception: Appears intact Cognition: Intact Orientation Insight: Present and adequate Judgment: Present and adequate Additional Observations: No PHQ-9 Score: 0 RAJANI-7 Score: 4 1. ADHD, predominantly inattentive type - ICD9: 314.00, ICD10: F90.0 (primary diagnosis) - DEXMETHYLPHENIDATE ER 15 MG CAPSULE,EXTENDED RELEASE [id number] 2. Generalized anxiety disorder - ICD9: 300.02, ICD10: F41.1 - SERTRALINE 100 MG TABLET 3. Panic disorder without agoraphobia - ICD9: 300.01, ICD10: F41.0 - SERTRALINE 100 MG TABLET Regarding the patient's generalized anxiety disorder, panic disorder and treatment with Zoloft I did provide a 3-month refill. He will need to decide whether he is returning to pediatric psychiatry in [place]. Alternatively we can establish him with the psychiatry provider sees patients in [place] I spent a total of 30 minutes on the date of the service which included preparing to see the patient, [id number] patient care, completing clinical documentation, obtaining and/or reviewing separately obtained history, performing a medically appropriate examination, counseling and educating the patient/family/caregiver, and ordering medications, tests, or procedures. Follow-up 6 months for ADHD Dimple Byers MD [facility] Department of Pediatrics, [facility] 04-03-2024 Telephone encounter Note OV 03/30/23 No F/U scheduled My Chart message sent for patient to schedule appointment Ashleigh Griffith LPN [facility] 04-03-2024 Miscellaneous Notes OV 03/30/23 No F/U scheduled My Chart message sent for patient to schedule appointment Ashleigh Griffith LPN documented in this encounter [facility] 12-10-2023 Telephone encounter Note Patient's request for medication is as follows Requested Prescriptions Signed Prescriptions Disp Refills dexmethylphenidate XR (FOCALIN XR) 15 mg biphasic capsule 90 capsule 0 Sig: Take 1 capsule by mouth every morning for 90 days. Authorizing Provider: DIMPLE BYERS MD [facility] 12-10-2023 Miscellaneous Notes Patient's request for medication is as follows Requested Prescriptions Signed Prescriptions Disp Refills dexmethylphenidate XR (FOCALIN XR) 15 mg biphasic capsule 90 capsule 0 Sig: Take 1 capsule by mouth every morning for 90 days. Authorizing Provider: DIMPLE BYERS MD Last WCC: greater than one year ago Last ADHD / Med Check visit: 06/02/2023 and patient notified of need for appointment Verify RX Benefits Completed Last medication refill date: 09/29/2023 Requesting 90 day supply Retail pharmacy updated: Completed Patient aware RX will be sent to pharmacy. No need to notify patient. Health Maintenance due: HPV Vaccine(1 - Male 3-dose series) Never done Meningococcal B Vaccine: Consider Based On Risk(1 of 2 - Patient Seeks Protection) Never done Spirometry Never done Hepatitis C Screening Never done HIV Screening due on 2022 Asthma Control Test due on 03/18/2023 Covid-19 Vaccine() due on 03/19/2023 Asthma Action Plan due on 03/26/2023 Behavioral Health Screening Never done Doris Nation LPN documented in this encounter [facility] 12-10-2023 Telephone encounter Note Last WCC: greater than one year ago Last ADHD / Med Check visit: 06/02/2023 and patient notified of need for appointment Verify RX Benefits Completed Last medication refill date: 09/29/2023 Requesting 90 day supply Retail pharmacy updated: Completed Patient aware RX will be sent to pharmacy. No need to notify patient. Health Maintenance due: HPV Vaccine(1 - Male 3-dose series) Never done Meningococcal B Vaccine: Consider Based On Risk(1 of 2 - Patient Seeks Protection) Never done Spirometry Never done Hepatitis C Screening Never done HIV Screening due on 2022 Asthma Control Test due on 03/18/2023 Covid-19 Vaccine() due on 03/19/2023 Asthma Action Plan due on 03/26/2023 Behavioral Health Screening Never done Doris Nation LPN [facility] 11-30-2023 Note HNO ID: [id number] Author: MATY ANDERS APRN.[employer] Service: ? Author Type: Nurse Practitioner Type: Progress Notes Filed: 11/30/2023 18:49 Note Text: Subjective Ear Pain Associated symptoms include congestion (due to allergies). Pertinent negatives include no coughing, fever, myalgias or sore throat. Piyush Gudino is a 18 year old male who presents with right ear feeling muffled, having trouble hearing, for the past 5 days. He has had recent nasal congestion due to allergies. He has not had a fever He has not taken any medications at home for this symptom. Review of Systems Constitutional: Negative for fever and malaise/fatigue. HENT: Positive for congestion (due to allergies) and hearing loss. Negative for ear discharge, ear pain and sore throat. Respiratory: Negative for cough. Cardiovascular: Negative. Musculoskeletal: Negative for myalgias. BP 118/68 Pulse 90 Temp 36.6 ?C (97.9 ?F) Resp 16 Wt 76.7 kg (169 lb 1.5 oz) SpO2 97% PAST MEDICAL HISTORY Diagnosis Date Anxiety Asthma Eczema mild Hayfever NEGATIVE MEDICAL HISTORY normal color vision Vesicoureteral reflux, unspecified or without reflux nephropathy 200405 grade 2 PAST SURGICAL HISTORY Procedure Laterality Date CHG CIRCUMCISION 04/18/07 ALLERGIES Patient has no known allergies. MEDICATIONS dexmethylphenidate XR (FOCALIN XR) 15 mg biphasic capsule Take 1 capsule by mouth every morning for 90 days. melatonin 10 mg tab Take 0.5 tablets by mouth daily at bedtime. propranolol (INDERAL) 10 mg tablet 1 tablet administered po 30 to 60 minutes prior to anxiety-provoking situation. May use up to 3 times dper day maximum. Please provide 2 labeled containers. sertraline (ZOLOFT) 100 mg tablet TAKE ONE AND ONE-HALF TABLETS ONCE DAILY hydrOXYzine HCl (ATARAX) 25 mg tablet Take 1 tablet by mouth three times daily as needed for anxiety. albuterol HFA (PROAIR HFA) 90 mcg/actuation inhaler Inhale 2 Puffs as instructed every 4 hours as needed for wheezing/shortness of breath. amoxicillin (AMOXIL) 875 mg tablet Take 1 tablet by mouth two times a day for 7 days. FAMILY HISTORY Adopted: Yes Problem Relation Age of Onset other (unknown) Other patient is adopted Social History Tobacco Use Smoking status: Never Passive exposure: Never Smokeless tobacco: Never Vaping Use Vaping Use: Never used Objective Physical Exam Vitals and nursing note reviewed. Constitutional: General: He is not in acute distress. Appearance: Normal appearance. He is not ill-appearing. HENT: Right Ear: Ear canal and external ear normal. A middle ear effusion is present. Tympanic membrane is erythematous. Left Ear: Tympanic membrane, ear canal and external ear normal. Mouth/Throat: Pharynx: Uvula midline. Cardiovascular: Rate and Rhythm: Normal rate and regular rhythm. Heart sounds: Normal heart sounds. Pulmonary: Effort: Pulmonary effort is normal. No respiratory distress. Breath sounds: Normal breath sounds. No wheezing or rales. Musculoskeletal: Cervical back: Neck supple. Lymphadenopathy: Cervical: No cervical adenopathy. Skin: General: Skin is warm and dry. Findings: No erythema or rash. Neurological: Mental Status: He is alert. ASSESSMENT/PLAN: 1. Other acute nonsuppurative otitis media of right ear, recurrence not specified - ICD9: 381.00, ICD10: H65.191 - Will begin treatment with as per antibiotic as written, see orders - Supportive care with plenty of fluids, rest, and analgesia prn. - AMOXICILLIN 875 MG TABLET - may also use flonase nasal spray - Follow-up with your PCP in 3-5 days if symptoms have not improved or sooner if symptoms worsen - Discussed red flags and need for immediate medical evaluation if any occur. - Discussed supportive care treatment with fluids, rest and analgesia. - Discussed expected course of illness Maty Anders APRN.[facility] 11-30-2023 History of Present illness Narrative Subjective Ear Pain Associated symptoms include congestion (due to allergies). Pertinent negatives include no coughing, fever, myalgias or sore throat. Piyush Gudino is a 18 year old male who presents with right ear feeling muffled, having trouble hearing, for the past 5 days. He has had recent nasal congestion due to allergies. He has not had a fever He has not taken any medications at home for this symptom. Review of Systems Constitutional: Negative for fever and malaise/fatigue. HENT: Positive for congestion (due to allergies) and hearing loss. Negative for ear discharge, ear pain and sore throat. Respiratory: Negative for cough. Cardiovascular: Negative. Musculoskeletal: Negative for myalgias. BP 118/68 Pulse 90 Temp 36.6 C (97.9 F) Resp 16 Wt 76.7 kg (169 lb 1.5 oz) SpO2 97% PAST MEDICAL HISTORY Diagnosis Date Anxiety Asthma Eczema mild Hayfever NEGATIVE MEDICAL HISTORY normal color vision Vesicoureteral reflux, unspecified or without reflux nephropathy 200405 grade 2 PAST SURGICAL HISTORY Procedure Laterality Date CHG CIRCUMCISION 04/18/07 ALLERGIES Patient has no known allergies. MEDICATIONS dexmethylphenidate XR (FOCALIN XR) 15 mg biphasic capsule Take 1 capsule by mouth every morning for 90 days. melatonin 10 mg tab Take 0.5 tablets by mouth daily at bedtime. propranolol (INDERAL) 10 mg tablet 1 tablet administered po 30 to 60 minutes prior to anxiety-provoking situation. May use up to 3 times dper day maximum. Please provide 2 labeled containers. sertraline (ZOLOFT) 100 mg tablet TAKE ONE AND ONE-HALF TABLETS ONCE DAILY hydrOXYzine HCl (ATARAX) 25 mg tablet Take 1 tablet by mouth three times daily as needed for anxiety. albuterol HFA (PROAIR HFA) 90 mcg/actuation inhaler Inhale 2 Puffs as instructed every 4 hours as needed for wheezing/shortness of breath. amoxicillin (AMOXIL) 875 mg tablet Take 1 tablet by mouth two times a day for 7 days. FAMILY HISTORY Adopted: Yes Problem Relation Age of Onset other (unknown) Other patient is adopted Social History Tobacco Use Smoking status: Never Passive exposure: Never Smokeless tobacco: Never Vaping Use Vaping Use: Never used Objective Physical Exam Vitals and nursing note reviewed. Constitutional: General: He is not in acute distress. Appearance: Normal appearance. He is not ill-appearing. HENT: Right Ear: Ear canal and external ear normal. A middle ear effusion is present. Tympanic membrane is erythematous. Left Ear: Tympanic membrane, ear canal and external ear normal. Mouth/Throat: Pharynx: Uvula midline. Cardiovascular: Rate and Rhythm: Normal rate and regular rhythm. Heart sounds: Normal heart sounds. Pulmonary: Effort: Pulmonary effort is normal. No respiratory distress. Breath sounds: Normal breath sounds. No wheezing or rales. Musculoskeletal: Cervical back: Neck supple. Lymphadenopathy: Cervical: No cervical adenopathy. Skin: General: Skin is warm and dry. Findings: No erythema or rash. Neurological: Mental Status: He is alert. ASSESSMENT/PLAN: 1. Other acute nonsuppurative otitis media of right ear, recurrence not specified - ICD9: 381.00, ICD10: H65.191 - Will begin treatment with as per antibiotic as written, see orders - Supportive care with plenty of fluids, rest, and analgesia prn. - AMOXICILLIN 875 MG TABLET - may also use flonase nasal spray - Follow-up with your PCP in 3-5 days if symptoms have not improved or sooner if symptoms worsen - Discussed red flags and need for immediate medical evaluation if any occur. - Discussed supportive care treatment with fluids, rest and analgesia. - Discussed expected course of illness Maty Anders APRN.CNP documented in this encounter [facility] 11-30-2023 Instructions Maty Anders APRN.CNP - 11/30/2023 6:47 PM EDT ASSESSMENT/PLAN: 1. Other acute nonsuppurative otitis media of right ear, recurrence not specified - ICD9: 381.00, ICD10: H65.191 - Will begin treatment with as per antibiotic as written, see orders - Supportive care with plenty of fluids, rest, and analgesia prn. - AMOXICILLIN 875 MG TABLET - may also use flonase nasal spray - Follow-up with your PCP in 3-5 days if symptoms have not improved or sooner if symptoms worsen - Discussed red flags and need for immediate medical evaluation if any occur. - Discussed supportive care treatment with fluids, rest and analgesia. - Discussed expected course of illness Maty Anders APRN.[employer] OTITIS MEDIA GENERAL INFORMATION: Otitis media is an infection of the middle ear. The middle ear sits behind the eardrum. This infection may be caused by a virus or bacteria and often follows a cold. Children often have repeat ear infections. Otitis media is not contagious. INSTRUCTIONS: 1. An antibiotic has been prescribed. It should be taken exactly as prescribed. Do not stop the medicine even if the symptoms go away. 2. Wgvr-zwl-rotzuso pain medication may be taken or other pain medication as prescribed by the doctor. 3. Nothing should be placed in the ear unless instructed by your doctor. 4. The patient may return to school/daycare or work when the temperature is normal (98.6 F or 37 C). 5. The patient should not swim while the ear is infected. CONTACT YOUR DOCTOR IF YOU OR YOUR CHILD: 1. Does not feel better within 36 hours. 2. Develops a temperature over 102E F (39E C). 3. Starts vomiting or has diarrhea. 4. Develops drainage from the affected ear. 5. Has any new problem that may be related to the medicine prescribed. RETURN TO THE ED IF: 1. You or your child has a severe headache or pain around the ear. 2. You or your child notice swelling around the ear. 3. You or your child has a seizure (convulsion), twitching of the facial muscles, or passes out. 4. You or your child is dizzy, has a stiff neck, or cannot walk or talk normally. 5. Your child becomes more irritable or listless (not interested in his or her surroundings, does not get soothed by you holding him or her). documented in this encounter [facility] 09-29-2023 Miscellaneous Notes Patient's request for medication is as follows Requested Prescriptions Signed Prescriptions Disp Refills dexmethylphenidate XR (FOCALIN XR) 15 mg biphasic capsule 90 capsule 0 Sig: Take 1 capsule by mouth every morning for 90 days. Authorizing Provider: DIMPLE BYERS MD Last WCC: greater than one year ago Last ADHD / Med Check visit: 06/02/23 Verify RX Benefits Completed Last medication refill date: 05/31/23 (90 day) Requesting 90 day supply Retail pharmacy updated: Completed Patient aware RX will be sent to pharmacy. No need to notify patient. Health Maintenance due: HPV Vaccine(1 - Male 3-dose series) Never done Meningococcal B Vaccine: Consider Based On Risk(1 of 2 - Patient Seeks Protection) Never done Spirometry Never done Hepatitis C Screening Never done HIV Screening due on 2022 Asthma Control Test due on 03/18/2023 Covid-19 Vaccine( season) due on 03/19/2023 Asthma Action Plan due on 03/26/2023 Depression Assessment Never done Delaney Benítez RN documented in this encounter [facility] 06-02-2023 History of Present illness Narrative Piyush Gudino is an 17-year-old male with a diagnosis of attention deficit hyperactivity disorder, generalized anxiety disorder, panic disorder and learning disability who presents to the office today for routine follow-up and management Currently taking Focalin XR 15 mg for treating symptoms of ADHD Currently taking Zoloft 150 mg by mouth once daily for treating symptoms of generalized anxiety disorder. Additionally the patient sees a therapist every other week at [facility] [employer] [place], [place] Currently taking Atarax as needed for panic attacks. Patient is currently a senior at [employer]. He does have an IEP First 9 weeks the patient made honor roll. The second 9 weeks he has lost interest in school. He will pass his classes but is currently getting 2 days. Goal is to go to [employer]. Sleep: Bedtime: The patient does not have a set bedtime it is very erratic. Sleep onset latency is maybe 1 hour based on his history. Nighttime awakenings are rare if any. On the weekdays he wakes at 7 AM and on the weekends he wakes between 8 AM and 9 AM. Currently works on the weekends through [employer] ACTIVE PROBLEM LIST Vesicoureteral Reflux, Unspecified Or Without Reflux Nephropathy Mild Intermittent Asthma Without Complication Learning Disability Adhd, Predominantly Inattentive Type Generalized Anxiety Disorder Panic Disorder Without Agoraphobia Insomnia Due to Other Mental Disorder PAST MEDICAL HISTORY Diagnosis Date Anxiety Asthma Eczema mild Hayfever NEGATIVE MEDICAL HISTORY normal color vision Vesicoureteral reflux, unspecified or without reflux nephropathy 200405 grade 2 PAST SURGICAL HISTORY Procedure Laterality Date CHG CIRCUMCISION 04/18/07 ALLERGIES No Known Allergies 06/02/23 0826 BP: 118/74 Pulse: 82 Resp: 16 Temp: 36.4 C (97.6 F) TempSrc: Temporal Weight: 74 kg (163 lb 3.2 oz) Height: 160 cm (5' 3") GENERAL: Appearance: Neat and clean, Attired in street clothes, Appropriately groomed, and Appropriate hygiene Behavior: organized and cooperative Activity/Motor: normal Interaction: Eye Contact: Yes Interaction: No Gait: normal Speech:clear and distinct Yes, Dysrthic No MOOD: Affect:: Mood Congruent Thought Form: Linear and Organized Content: Rational and future-oriented Perception: Appears intact Cognition: Intact Orientation Insight: Present and adequate Judgment: Present and adequate Additional Observations: No ASSESSMENT/PLAN: 1. ADHD, predominantly inattentive type - ICD9: 314.00, ICD10: F90.0 (primary diagnosis) Continue Focalin XR 15 mg by mouth once daily 2. Encounter for immunization - ICD9: V03.89, ICD10: Z23 - INFLUENZA VACCINE, AGE 6 MO - 64 YR, QUADRIVALENT (AFLURIA, FLULAVAL, FLUZONE) - MENINGOCOCCAL (MENACWY-TT) VACCINE, QUADRIVALENT (MENQUADFI) 3. Generalized anxiety disorder - ICD9: 300.02, ICD10: F41.1 4. Panic disorder without agoraphobia - ICD9: 300.01, ICD10: F41.0 Use of propranolol prior to stressful events. We will start with 10 mg 5. Learning disability - ICD9: 315.2, ICD10: F81.9 I spent a total of 25 minutes on the date of the service which included preparing to see the patient, auue-dn-grlq patient care, completing clinical documentation, obtaining and/or reviewing separately obtained history, performing a medically appropriate examination, counseling and educating the patient/family/caregiver, and ordering medications, tests, or procedures. Follow-up 6 months Dimple Byers MD [facility] Department of Pediatrics, [facility] documented in this encounter [facility] 05-31-2023 Miscellaneous Notes Patient's request for medication is as follows Requested Prescriptions Signed Prescriptions Disp Refills dexmethylphenidate XR (FOCALIN XR) 15 mg biphasic capsule 90 capsule 0 Sig: Take 1 capsule by mouth every morning for 90 days. Authorizing Provider: DIMPLE BYERS MD Last WCC: greater than one year ago Last ADHD / Med Check visit: 10/12/22 and appointment scheduled for 06/02/23 Verify RX Benefits Completed Last medication refill date: 02/23/23 Requesting 90 day supply Retail pharmacy updated: Completed Patient aware RX will be sent to pharmacy. No need to notify patient. Health Maintenance due: HPV Vaccine(1 - Male 2-dose series) Never done Meningococcal Conjugate Vaccine(2 - 2-dose series) due on 2020 Meningococcal B Vaccine: Consider Based On Risk(1 of 2 - Patient Seeks Protection) Never done Depression Assessment Never done Spirometry Never done Hepatitis C Screening Never done HIV Screening due on 2022 Asthma Control Test due on 03/18/2023 Influenza Vaccine(1) due on 03/19/2023 Covid-19 Vaccine( season) due on 03/19/2023 Asthma Action Plan due on 03/26/2023 Rosa Guadalupe RN documented in this encounter [facility] 03-30-2023 Instructions Luis Silver MD - 03/30/2023 4:47 PM EDT Local/Regional LGBTQ Resources [facility] [place] [email or web address] [address] [place] [address] ([phone]) [facility] [email or web address] [address], [place] ([phone]) PFLAG (Parents, Families and Friends of Lesbians and [place]) www.pflag[place].org TransFamily www.transfamily.org Out Support [place] outsport.[email or web address] [employer] (summer camp program for transgender teens) www.camplilac.org Trans[place] www.trans[place].org [place] (advocacy organization) www.eqiality[place].org National LGBTQ Resources [employer] - Crisis Intervention and Suicide Prevention for LGBT Youth 290-973-6442 TransLifeline.org - Transgender Lifeline Suicide and Crisis Hotline 665-516-1773 [facility] Help Center - National Hotline for all ages 635-329-5982 What we discussed today: Problem List Items Addressed This Visit Psychiatry ADHD, predominantly inattentive type Overview Continue Focalin XR 15mg daily Generalized anxiety disorder - Primary Overview See panic disorder for plan Panic disorder without agoraphobia Overview Continue zoloft 150mg daily Continue hydroxyzine 25mg up to three times daily as needed for anxiety or panic Continue counseling Insomnia due to other mental disorder Overview Continue melatonin 10mg at bedtime Please take all medication as prescribed. We require all medication refills to be requested 7 days in advance. Please send a [employer] message or call to request a refill. YOU SHOULD SEEK MEDICAL ATTENTION IMMEDIATELY, AT THE NEAREST EMERGENCY DEPARTMENT OR BY CALLING 911, IF ANY OF THE FOLLOWING OCCURS: - New or worsening thoughts of harming self (suicidal thoughts) or harming others. - Not feeling safe at home. - You are concerned about ability to remain safe at home. If you are having thoughts of hurting yourself or others, you can: - Call the National Suicide Hotline number at 988 (this is a new number) - Text 4hope to 062954 - Call the crisis hotline in [facility]: [facility]: Mental Health Crisis Services at 905-794-4341 or Luis Silver MD Child & Adolescent Psychiatrist [facility] documented in this encounter [facility] 03-30-2023 History of Present illness Narrative Images from the original note were not included. CHILD & ADOLESCENT PSYCHIATRY FOLLOW-UP VISIT ASSESSMENT AND PLAN Anxiety remains overall well controlled but can be triggered by social situations- rec preventative use of PRN hydroxyzine Mom reports IQ is in the low range- rec seeing if he would qualify for Board of DD services as he transitions to adulthood Will refer to Dianelys Sweeney for consideration of other transition to adulthood supports, social skills supports, and possibly the anxiety group Problem List Items Addressed This Visit Psychiatry ADHD, predominantly inattentive type Overview Continue Focalin XR 15mg daily Generalized anxiety disorder - Primary Overview See panic disorder for plan Panic disorder without agoraphobia Overview Continue zoloft 150mg daily Continue hydroxyzine 25mg up to three times daily as needed for anxiety or panic Continue counseling Insomnia due to other mental disorder Overview Continue melatonin 10mg at bedtime Diagnoses: (F41.1) Generalized anxiety disorder (primary encounter diagnosis) (F41.0) Panic disorder without agoraphobia (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 SUBJECTIVE CC: anxiety follow up 12th grade, doing well academically Mood is overall good without significant depression Anxiety overall well-managed with severity 3/10 (10=worst) No recent panic attacks Sleeping well with melatonin qhs Feeling well-rested Concentrating well but feeling more unfocused by the end of the school day Good appetite, eats lunch and dinner consistently Used hydroxyzine x1 over the summer No self harm No passive/active S/HI No AVH Stressors and/or changes to social history: No Medication reactions: No Treatment compliance is good. The patient is seeing a therapist. Any collateral information collected outside this interview? No Are there any new updates to patient's medical history? No Psych ROS Review of Systems All other systems reviewed and are negative. HISTORY Medications Outpatient medications: Current Outpatient Medications on File Prior to Visit Medication Sig dexmethylphenidate XR (FOCALIN XR) 15 mg biphasic capsule Take 1 capsule by mouth every morning for 30 days. dexmethylphenidate XR (FOCALIN XR) 15 mg biphasic capsule Take 1 capsule by mouth every morning for 90 days. sertraline (ZOLOFT) 100 mg tablet TAKE ONE AND ONE-HALF TABLETS ONCE DAILY dexmethylphenidate (FOCALIN XR) 15 mg Capsule ER Take 1 capsule by mouth every morning for 30 days. Do not start before December 11, 2022. melatonin 10 mg tab Take 1 tablet by mouth daily at bedtime. hydrOXYzine HCl (ATARAX) 25 mg tablet Take 1 tablet by mouth three times daily as needed for anxiety. albuterol HFA (PROAIR HFA) 90 mcg/actuation inhaler Inhale 2 Puffs as instructed every 4 hours as needed for wheezing/shortness of breath. No current facility-administered medications on file prior to visit. ALLERGIES No Known Allergies Medical CURRENT PCP: Dimple Byers MD ACTIVE PROBLEM LIST Vesicoureteral Reflux, Unspecified Or Without Reflux Nephropathy Mild Intermittent Asthma Without Complication Learning Disability Adhd, Predominantly Inattentive Type Generalized Anxiety Disorder Panic Disorder Without Agoraphobia Insomnia Due to Other Mental Disorder PREVIOUS SURGERIES: PAST SURGICAL HISTORY Procedure Laterality Date CHG CIRCUMCISION 04/18/07 Family Family History Adopted: Yes Problem Relation Age of Onset other (unknown) Other patient is adopted OBJECTIVE 03/30/23 1614 BP: (!) 134/43 Pulse: 82 Resp: 16 Weight: 71.4 kg (157 lb 8 oz) Last 3 Encounter Wt Readings: Date: Wt: 03/30/2023 71.4 kg (157 lb 8 oz) (62 %, Z= 0.29)* 10/12/2022 71.3 kg (157 lb 3.2 oz) (64 %, Z= 0.36)* 03/18/2022 68.7 kg (151 lb 6.4 oz) (60 %, Z= 0.27)* Last 3 Encounter Ht Readings: Date: Ht: 10/12/2022 158.7 cm (5' 2.48") (<1 %, Z= -2.38)* 03/18/2022 159 cm (5' 2.6") (1 %, Z= -2.25)* 05/30/2021 156.4 cm (5' 1.58") (<1 %, Z= -2.37)* There is no height or weight on file to calculate BMI. PHYSICAL EXAM General / Constitutional: 17 year old who is in no acute distress, well appearing, alert, well-hydrated, well nourished. Neurological: Grossly normal strength and no abnormal movements. CN II-XII: grossly intact. No tics or tremors noted. MENTAL STATUS EXAMINATION: Appearance: 17 year old adolescent, casually dressed and appears younger than stated age. Behavior: The patient behaves appropriately during the encounter, pleasant and interactive, no psychomotor abnormalities, with intermittent eye contact. Speech/Language: The patient demonstrates appropriate tone, prosody, lucio, phonetics, and syntax. Mood: Described as "ok". Affect: The patient displays a full ranged, euthymic affect that is appropriate to the setting. Thought Content: The patient displays thought content appropriate to the interview. Thought Process: The thought process is linear and organized. Hallucinations: The patient does not appear internally stimulated, and denies auditory or visual hallucinations. Suicidal ideas/plans: The patient denies suicidal ideation, plan or intent at this time. Homicidal ideas/plan: The patient denies homicidal ideation, plan or intent at this time. Concentration: The patient demonstrates fair attention throughout the interview. Orientation: The patient is oriented x3. Memory: The patient displays no overt memory impairments. Fund of Knowledge: Appropriate for developmental level. Judgment: The patient demonstrates fair judgment. Insight: The patient demonstrates fair insight. DATA REVIEWED: The laboratory results have been reviewed. Reviewed pertinent information from guardian report, EMR, and standardized scales. No results found for: "WBC", "HGB", "HCT", "PLATELETS", "SODIUM", "POTASSIUM", "BUN", "CREAT", "AST", "ALT", "TSH", "HGBA1C", "CHOL", "HDL", "LDL", TRIG My Last OARRS Check for this patient OARRS REPORTING HISTORY There is no flowsheet data to display. I spent a total of 40 minutes on the date of service, which included preparing to see the patient, casn-dy-utre patient care, completing clinical documentation, obtaining and/or reviewing separately obtained history, performing a medically appropriate examination, counseling and educating the patient/family/caregiver, ordering medications, tests, or procedures, communicating with other HCPs (not separately reported), and communicating results to the patient/family/caregiver. SIGNATURE: Luis Silver MD DATE of SERVICE: March 30, 2023 TIME of SERVICE: 4:21 PM documented in this encounter [facility] 02-23-2023 Miscellaneous Notes Patient's request for medication is as follows Requested Prescriptions Signed Prescriptions Disp Refills dexmethylphenidate XR (FOCALIN XR) 15 mg biphasic capsule 30 capsule 0 Sig: Take 1 capsule by mouth every morning for 30 days. Authorizing Provider: DIMPLE BYERS MD Mom spoke with the mail order pharmacy and pt's Rx is going to be a little longer and pt will run out of medication. Would like a 30 day Rx phoned to pharmacy so pt does not run out. New Rx pended for review. Pharmacy was updated. documented in this encounter [facility] 02-10-2023 Miscellaneous Notes Patient's request for medication is as follows Requested Prescriptions Signed Prescriptions Disp Refills dexmethylphenidate XR (FOCALIN XR) 15 mg biphasic capsule 90 capsule 0 Sig: Take 1 capsule by mouth every morning for 90 days. Authorizing Provider: DIMPLE BYERS MD Last WCC: 03/18/2022 Last ADHD / Med Check visit: 10/12/2022 Verify RX Benefits Completed Last medication refill date: 12/11/2022 Requesting 90 day supply Retail pharmacy updated: Completed Patient aware RX will be sent to pharmacy. No need to notify patient. Immunizations due: HPV VACCINE(1 - Male 2-dose series) Never done MENINGOCOCCAL CONJUGATE(2 - 2-dose series) due on 2020 MENINGOCOCCAL B: Consider based on risk(1 of 2 - Patient Seeks Protection) Never done COVID-19 VACCINE(3 - Pfizer series) due on 01/24/2021 DEPRESSION ASSESSMENT Never done SPIROMETRY Never done HEPATITIS C SCREENING Never done HIV SCREENING due on 2022 Doris Nation LPN documented in this encounter [facility] 05-29-2022 Miscellaneous Notes Patient's request for medication is as follows Requested Prescriptions Signed Prescriptions Disp Refills dexmethylphenidate (FOCALIN XR) 15 mg Capsule ER 90 capsule 0 Sig: Take 1 capsule by mouth every morning for 90 days. Authorizing Provider: DIMPLE BYERS MD Last WCC: 03/18/2022 Last ADHD / Med Check visit: 03/18/2022 Verify RX Benefits Completed Last medication refill date: 02/23/2022 x 90 days Requesting 90 day supply Retail pharmacy updated: Completed Patient aware RX will be sent to pharmacy. No need to notify patient. Immunizations due: MENINGOCOCCAL B: Consider based on risk(1 of 2 - Risk Bexsero 2-dose series) Never done HPV VACCINE(1 - Male 2-dose series) Never done MENINGOCOCCAL CONJUGATE(2 - 2-dose series) due on 2020 COVID-19 VACCINE(3 - Booster for Pfizer series) due on 01/24/2021 INFLUENZA(1) due on 03/19/2022 Doris Nation LPN documented in this encounter [facility] 03-18-2022 Instructions Dimple Byers MD - 03/18/2022 2:00 PM EDT Images from the original note were not included. 5 to Go!TM Healthy Kids Inside & Out 5 Eat FIVE fruits and veggies a day 4 Give and get FOUR compliments a day 3 Consume THREE calcium products a day 2 Limit media time to TWO hours a day 1 Get at least ONE hour of exercise a day 0 Consume ZERO sugar-sweetened drinks Go! Be healthy, inside and out! www.[facility].org/5toGo Adolescent to Adult Transition Program [facility] cares about helping you and each of our adolescents and young adults make a smooth transition to adult care. If your current doctor is a director of restaurants, we will work with you to decide the correct age for moving your care to a doctor or other provider who takes care of adults. We suggest that this move take place before age 22. Our office policy is to prepare you to move to a doctor or other provider who takes care of adults. This includes helping you find a doctor or other provider, sending medical records, and talking about any special needs with the new doctor or other provider. If your current doctor is in family medicine, [facility] will prepare you and your family for the transition to being an adult patient. You will be able to make your own healthcare decisions and will have an adult care team that meets your personal healthcare needs. At age 18, by law, we need your agreement to discuss personal health information with your family. We understand and respect that you may want to include your family in healthcare choices and will partner with you on how and when to include your family in decisions. We will make sure you know what changes to expect. We will also strive to make sure that all care team providers know your needs. We will help you find community resources and specialty care, if needed. Having your information before you come for the first time helps us be sure we do not miss any details. If joining our practice from outside [facility], we will help you request your medical record from past doctor(s) before your first visit. We will make every effort to work with your past providers to ensure a smooth transition and experience. We are always here for you. If you have any questions or concerns, please contact your primary care team or e-mail Got Transition is the federally funded national resource center on health care transition (HCT). Its aim is to improve transition from pediatric to adult health care through the use of evidence-driven strategies for health animal caregiver, youth, young adults, and their families. www.gottransition.org https://gottransition.org/resourc e/?chg-cvfwid-ivyhbzk Healthy Children Ages & Stages Texting Program HealthyChildren.org is an AAP ([employer]) parenting website. It is a great resource for information. They have a new Ages & Stages texting program available to parents. Fill out the information in the link below to start getting helpful tips and resources from AAP experts right to your phone. Be sure to include your child's age so they can send you age appropriate information. https://www.healthyMobilePro.org/E marilynn/tips-tools/HealthyChildren -Texting-Program/Pages/default.as px documented in this encounter [facility] 03-18-2022 History of Present illness Narrative WELL VISIT PEDIATRIC MALE 14-17 YRS OLD SERVICE DATE: 03/18/2022 Piyush is a 16 year old male who presents today for well exam accompanied by his mother. SUBJECTIVE CONCERNS: Doing well on current medications. Taking Focalin XR 15mg daily. Seeing Dr. Silver in child psych for prescription of Zoloft. HISTORY ACTIVE PROBLEM LIST Generalized Anxiety Disorder - 08/18/2021 Comment: See panic disorder for plan Panic Disorder Without Agoraphobia - 08/18/2021 Comment: Continue zoloft 150mg daily Continue hydroxyzine 25mg up to three times daily as needed for anxiety or panic Continue counseling Insomnia Due to Other Mental Disorder - 08/18/2021 Comment: Continue melatonin 10mg at bedtime Adhd, Predominantly Inattentive Type - 12/24/2014 Comment: Continue Focalin XR 15mg daily Unspecified Constipation - 11/08/2014 Learning Disability - 11/08/2014 Comment: Continue school accommodations Mild Intermittent Asthma Without Complication - 11/23/2011 Vesicoureteral Reflux, Unspecified Or Without Reflux Nephropathy - 02/24/2007 Comment: Right Grade 2. Last VCUG done in [facility] was 12/2006. PAST MEDICAL HISTORY Diagnosis Date Anxiety Asthma Eczema mild Hayfever NEGATIVE MEDICAL HISTORY normal color vision Vesicoureteral reflux, unspecified or without reflux nephropathy 200405 grade 2 PAST SURGICAL HISTORY Procedure Laterality Date CHG CIRCUMCISION 04/18/07 ALLERGIES No Known Allergies Medications: dexmethylphenidate (FOCALIN XR) 15 mg Capsule ER Take 1 capsule by mouth every morning for 90 days. melatonin 10 mg tab Take 1 tablet by mouth daily at bedtime. hydrOXYzine HCl (ATARAX) 25 mg tablet Take 1 tablet by mouth three times daily as needed for anxiety. sertraline (ZOLOFT) 100 mg tablet Take 1.5 tablets by mouth once daily. albuterol HFA (PROAIR HFA) 90 mcg/actuation inhaler Inhale 2 Puffs as instructed every 4 hours as needed for wheezing/shortness of breath. FAMILY HISTORY Adopted: Yes Problem Relation Age of Onset other (unknown) Other patient is adopted Social History Social History Narrative Not on file Smoking Exposure: Does your child spend a significant amount of time in the care of anyone who smokes? No School: Grade: 11th; grades B-C. Physical Activity: less than 1 hour of physical activity per day Types of physical activity: Drama Screen Time totaling more than 2 hours of screen time per day. Safety: Pediatric SDOH - Response to gun questions 03/18/2022 03/03/2021 Are there any guns kept in or around your home or where your child spends time? No No Reviewed seat belts, bike helmets, internet, water safety, and driving Diet: -Eats 3 meals per day and varies snacks per day -Typical beverages include sugar containing beverages -Fruits and vegetables are not eaten routinely -# of fast food meals/week: 1-2 -# of days/week that family has dinner together: 5 Elimination: no concerns, normal size and consistency Dental: dental care current Sleep: -no sleep concerns Substance use: none High risk behaviors: none Sexual History: Attraction: male Sexually Active: No Body image: satisfactory Screening tools reviewed and discussed with patient/blilsw-YEU-G and Social Determinants of Health. Please see Patient Entered Data. REVIEW OF SYSTEMS GENERAL: No fevers EYES: No vision concerns, Wears glasses, and Vision screening completed by eye doctor ENT: No hearing concerns RESPIRATORY: Negative for cough, wheezing or respiratory distress CARDIOVASCULAR: Negative for chest pain, syncope, lightheadness or heart racing SKIN: Negative for lesions, rash, and itching ENDOCRINE: No growth concerns OBJECTIVE Physical Exam: BP 126/86 Pulse 76 Temp 36.3 C (97.3 F) (Temporal Artery) Resp 12 Ht 159 cm (5' 2.6") Wt 68.7 kg (151 lb 6.4 oz) BMI 27.16 kg/m Blood pressure percentiles are 91 % systolic and 98 % diastolic based on the 2017 AAP Clinical Practice Guideline. This reading is in the Stage 1 hypertension range (BP >= 130/80). 92 %ile (Z= 1.43) based on CDC (Boys, 2-20 Years) BMI-for-age based on BMI available as of 03/18/2022. Last BMI: Wt: 64.6 kg (142 lb 6.4 oz) (55 %, Z= 0.13)* BMI: 26.41 kg/(m^2) Last 4 Encounter Wt Readings: Date: Wt: 05/30/2021 64.6 kg (142 lb 6.4 oz) (55 %, Z= 0.13)* 03/25/2021 62.2 kg (137 lb 3.2 oz) (49 %, Z= -0.03)* 03/18/2021 63.3 kg (139 lb 9.6 oz) (53 %, Z= 0.08)* 03/03/2021 62.1 kg (137 lb) (49 %, Z= -0.01)* Last 4 Encounter Ht Readings: Date: Ht: 05/30/2021 156.4 cm (5' 1.58") (<1 %, Z= -2.37)* 03/25/2021 155.8 cm (5' 1.34") (<1 %, Z= -2.38)* 03/03/2021 156 cm (5' 1.42") (<1 %, Z= -2.34)* 10/03/2020 154.6 cm (5' 0.87") (<1 %, Z= -2.34)* General: alert and active in no apparent distress Head: Normocephalic, atraumatic Eyes: PERRLA, EOM's intact Ears: External ears normal. Canals clear. Tympanic membranes are intact bilaterally without evidence of fluid in the middle ear space Nose/Sinuses: Nares normal. Septum midline. Mucosa normal. No drainage or sinus tenderness. Oropharynx: Tonsils are 1+. Uvula is midline and the oropharynx is symmetrical Neck: No masses and the suprasternal notch, no supraclavicular adenopathy, supple, no adenopathy Thyroid: no masses or nodules present Heart: Regular Rate and Rhythm without murmurs or clicks, femoral and radial pulses are normal.PMI normal Lungs: clear to auscultation. No wheezes or rales.Chest AP diameter normal. Abdomen: Abdomen is soft, nontender, without organomegaly or masses. Breasts: normal male exam : Declined examination Musculoskeletal: Extremities with FROM and no problems identified. Negative Mayer forward bend test. Bilateral shoulder, elbow and wrist exams are within normal limits. Bilateral hip, knee and ankle examinations are within normal limits. Neurological: Muscle tone normal, Awake, alert and oriented x 3, Cranial nerves II-XII grossly intact, Normal age appropriate gait, muscle tone normal, muscle strength 5/5 in the upper and lower extremities bilaterally and symmetrically, rapid alternating movements smooth in the hands without evidence of dysdiadochokinesia Skin: Normal skin exam without concerning lesions ASSESSMENT: 16 year old Well exam ACTIVE PROBLEM LIST Vesicoureteral Reflux, Unspecified Or Without Reflux Nephropathy: Followed by outside pediatric urology. No reported urinary symptoms Mild Intermittent Asthma Without Complication: Well-controlled Learning Disability Adhd, Predominantly Inattentive Type: Tolerating stimulant therapy. Continue as prescribed Generalized Anxiety Disorder: Continue to follow with pediatric psychiatry. Continue cognitive behavioral therapy Panic Disorder Without Agoraphobia: Continue to follow with pediatric psychiatry. Continue cognitive behavioral therapy Insomnia Due to Other Mental Disorder: Continue to follow with pediatric psychiatry. Continue cognitive behavioral therapy PLAN: 1) Plan per orders. No orders found for this visit on 03/18/22. 2) Hearing and Vision if done at the visit was discussed and reviewed with the patient and family. 3) Questionnaires, if administered at the office today, were reviewed with the patient and family. 4) Growth curves including BMI were reviewed with the patient. Education regarding BMI, its meaning utility and limitations were discussed in the office today. If the BMI was elevated, we discussed interventions. 5) Counseling: See patient instruction section 6) Follow up every 1 year for well exam and PRN. 92 %ile (Z= 1.43) based on CDC (Boys, 2-20 Years) BMI-for-age based on BMI available as of 03/18/2022. Piyush is overweight (BMI 85th% - 95th%): -Discussed how healthy eating, minimizing electronics and getting physical activity impact physical and emotional health -Avoid eating out and encouraged family meals at home Based on PHQ-A Score: 4 (recommended cut off score is 11) and interview, presentation is not consistent with depression but the patient does see psychiatry and has follow-up ongoing for generalized anxiety disorder. - Adolescent anticipatory guidance discussed. - Discussed diet and safety. - Dental care discussed. - 3225 filmss handout given (See Patient Instructions). - Parent/guardian declined immunization for HPV and was counseled regarding risk. - Follow up in one year for routine physical. SIGNATURE: Dimple Byers MD PATIENT NAME: Piyush Gudino DATE: March 18, 2022 TIME: 9:01 AM documented in this encounter [facility] 02-23-2022 Miscellaneous Notes Patient's request for medication is as follows Pending Prescriptions Disp Refills DEXMETHYLPHENIDATE ER 15 MG CAPSULE,EXTENDED RELEASE [id number] 90 capsule 0 Sig: Take 1 capsule by mouth every morning for 90 days. JOSE Class: C-II TERRI: No Order entered - please phone pharmacy and notify patient. Dimple Byers MD Last WCC: greater than one year ago and appointment scheduled for 03/18/22 Last ADHD / Med Check visit: 05/30/21 Verify RX Benefits Completed Last medication refill date: 12/02/21 for 90 days Requesting 90 day supply Retail pharmacy updated: Completed Patient aware RX will be sent to pharmacy. No need to notify patient. Immunizations due: MENINGOCOCCAL B: Consider based on risk(1 of 2 - Risk Bexsero 2-dose series) Never done HPV VACCINE(1 - Male 2-dose series) Never done MENINGOCOCCAL CONJUGATE(2 - 2-dose series) due on 2020 COVID-19 VACCINE(3 - Booster for Pfizer series) due on 05/01/2021 Rosa Guadalupe RN Left message to call our office, needs a medication check. Jefferson Garner RN documented in this encounter [facility] 12-12-2021 Instructions Luis Silver MD - 12/12/2021 2:09 PM EDT What we discussed today: Problem List Items Addressed This Visit Psychiatry Learning disability Overview Continue school accommodations ADHD, predominantly inattentive type Overview Continue Focalin XR 15mg daily Current Assessment & Plan Continue Focalin XR 15 mg po every day Generalized anxiety disorder - Primary Overview See panic disorder for plan Current Assessment & Plan Continue sertraline 150 mg po every day Continue hydroxyzine 25 mg po tid PRN Continue counseling Panic disorder without agoraphobia Overview Continue zoloft 150mg daily Continue hydroxyzine 25mg up to three times daily as needed for anxiety or panic Continue counseling Current Assessment & Plan Continue sertraline 150 mg po every day Continue hydroxyzine 25 mg po tid PRN Continue counseling Insomnia due to other mental disorder Overview Continue melatonin 10mg at bedtime Please take all medication as prescribed. We require all medication refills to be requested 7 days in advance. Please send a [employer] message or call to request a refill. YOU SHOULD SEEK MEDICAL ATTENTION IMMEDIATELY, AT THE NEAREST EMERGENCY DEPARTMENT OR BY CALLING 911, IF ANY OF THE FOLLOWING OCCURS: - New or worsening thoughts of harming self (suicidal thoughts) or harming others. - Not feeling safe at home. - You are concerned about ability to remain safe at home. If having thoughts of harming self or others, you can: - Call the [employer] Suicide Hotline at 9-593-OVBNBEQ ( ) or 7-887-199-TALK (9952) - Text 4hope to 938886 Luis Silver MD Child & Adolescent Psychiatrist [facility] documented in this encounter [facility] 12-12-2021 History of Present illness Narrative Images from the original note were not included. CHILD & ADOLESCENT PSYCHIATRY FOLLOW-UP VISIT Type of visit: virtual visit Patient was present for this visit. Accompanied by: adopted mother Total time for encounter: 45 minutes Confidentiality limitations with virtual visits were reviewed with the patient and guardian, who have consented and accepted the risk verbally prior to proceeding with this encounter. [facility] STAFF: TEACHING PHYSICIAN NOTE OF PERSONAL INVOLVEMENT IN CARE I personally participated in the malik components of and reviewed the below history and physical obtained and documented by the fellow. I have interviewed the patient and discussed the case and management of the patient's care with the patient and/or family. The following comments revise or confirm relevant malik components of the below note. IMPRESSION: Piyuhs Gudino is a 16 year old patient with a history of RAJANI, panic, and ADHD who presents for an outpatient visit. In regards to anxiety, symptoms are improving with Mild ongoing problems in this area. Treatment compliance is good. The patient is seeing a therapist. Anxiety remains well controlled with few managaeble exacerbations He has occasional passive SI but is able to use coping skills and communicate with mom when feeling distressed - no acute safety concern today Will continue sertraline and prn hydroxyzine Focalin XR prescribed by PCP Continue counseling Encouraged LGBTQ+ services On Examination: Engaged, good eye contact, full range of affect. 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 -Family was asked to call for an earlier visit if needed. Please refer to the resident/fellow note below for complete assessment and plan. Medical Decision Making: Problems: Moderate: 2+ stable chronic illnesses Data: Unique test result(s) reviewed: 2 Assessment requiring an independent historian(s) Risk: Moderate: Drug management Medical Decision Making Level: 4 - Moderate This staff note supersedes the trainee note below. I have reviewed the note and concur with the findings except as described above. My edits to the note are in bold and strike-through. SIGNATURE: Luis Silver MD PATIENT NAME: Piyush Gudino DATE: December 12, 2021 TIME: 2:05 PM Authenticated by responsible provider. ASSESSMENT AND PLAN Patient is a 16-year-old male with a history of ADHD, RAJANI and panic disorder. On this visit we have elected to continue his pharmacological regimen as prescribed. Overall, patient feels less depressed and anxious. Does have situational stressors involving school and being accepted by peers for his lifestyle choices. Patient is able to communicate effectively with caregiver when feeling depressed or overwhelmed. Safety planning was reviewed on this visit. Additionally, resources regarding LGBTQ groups were also discussed. All parties took active role in treatment planning this morning. We will follow-up in4-6 months. 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 Follow-up: - No follow-ups on file. Family was asked to call for an earlier visit if needed. SUBJECTIVE CC: "Doing better" Patient reports feeling less depressed and anxious overall. Patient reports finishing up to 10th grade, will be attending summer camp and going to a mission trip to [place] Reports school is a stressor, attends a [employer] school with conservative values that may not be as accepting of his lifestyle. Reports then when he has felt overwhelmed in the past that he has passive suicidal thoughts. Never acted on thoughts. Was able to communicate with his adoptive mother and work through stressors. When prompted today, denies any SI/HI or AVH. No concerns of self-injurious behaviors. No access to firearms, lethal means and/or medications. Reports medication has been helpful and continues to take it on a regular basis. No issues with sleep or appetite. Both patient and mother feel that he is doing well. Sleep: normal, no concerns Appetite: fair Stressors and/or changes to social history: See HPI Medication reactions: No Treatment compliance is good. The patient is seeing a therapist every 2 weeks Any collateral information collected outside this interview? No Are there any new updates to patient's medical history? No REVIEW OF SYMPTOMS PSYCH: Sleep: Patient denies symptoms Eating: Patient denies symptoms Depression: Patient denies symptoms Safety: There is no current active SI/HI, intent, or plan and no access to unsecured guns, sharps, medications, or means to self harm. There is no concern for current plan to harm self. Patient reports passive suicidal thoughts. There is no concern for passive wish. Anxiety: Patient denies symptoms Review of Systems All other systems reviewed and are negative. HISTORY Medications Outpatient medications: Current Outpatient Medications on File Prior to Visit Medication Sig dexmethylphenidate (FOCALIN XR) 15 mg Capsule ER Take 1 capsule by mouth every morning for 90 days. melatonin 10 mg tab Take 1 tablet by mouth daily at bedtime. hydrOXYzine HCl (ATARAX) 25 mg tablet Take 1 tablet by mouth three times daily as needed for anxiety. sertraline (ZOLOFT) 100 mg tablet Take 1.5 tablets by mouth once daily. albuterol HFA (PROAIR HFA) 90 mcg/actuation inhaler Inhale 2 Puffs as instructed every 4 hours as needed for wheezing/shortness of breath. No current facility-administered medications on file prior to visit. ALLERGIES No Known Allergies Medical CURRENT PCP: Dimple Byers MD ACTIVE PROBLEM LIST Vesicoureteral Reflux, Unspecified Or Without Reflux Nephropathy Mild Intermittent Asthma Without Complication Unspecified Constipation Learning Disability Adhd, Predominantly Inattentive Type Generalized Anxiety Disorder Panic Disorder Without Agoraphobia Insomnia Due to Other Mental Disorder PREVIOUS SURGERIES: PAST SURGICAL HISTORY Procedure Laterality Date CHG CIRCUMCISION 04/18/07 Family Family History Adopted: Yes Problem Relation Age of Onset other (unknown) Other patient is adopted OBJECTIVE There were no vitals filed for this visit. - Vital signs not obtained as this was a virtual visit Last 3 Encounter Wt Readings: Date: Wt: 05/30/2021 64.6 kg (142 lb 6.4 oz) (55 %, Z= 0.13)* 03/25/2021 62.2 kg (137 lb 3.2 oz) (49 %, Z= -0.03)* 03/18/2021 63.3 kg (139 lb 9.6 oz) (53 %, Z= 0.08)* Last 3 Encounter Ht Readings: Date: Ht: 05/30/2021 156.4 cm (5' 1.58") (<1 %, Z= -2.37)* 03/25/2021 155.8 cm (5' 1.34") (<1 %, Z= -2.38)* 03/03/2021 156 cm (5' 1.42") (<1 %, Z= -2.34)* There is no height or weight on file to calculate BMI. PHYSICAL EXAM General / Constitutional: 16 year old who is in no acute distress, well appearing, alert, well-hydrated, well nourished. Neurological: Grossly normal strength and no abnormal movements. CN II-XII: grossly intact. No tics or tremors noted. Mental Status Exam: General/Sensorium: Alert and & interactive - Appearance: Appears well groomed and stated age - Eye Contact: Appropriate eye contact - Demeanor: Appropriately interactive and Cooperative - Motor Activity: Normal - Speech: Appropriate and Articulate with appropriate rhythm and volume - Mood: Denies mood concerns - Affect: Euthymic - Thought Process: Linear, logical, and goal-directed - Associations: Normal - Thought Content: Appropriate with no SI/HI/AVH - Perceptions: The patient does not appear internally stimulated - Cognition: Appears intact in regards to memory, attention/concentration, fund of knowledge and language skills - Insight: Fair - Judgment: Fair - Patient Data Generalized Anxiety Disorder Scale (RAJANI-7) RAJANI - 7 SCORES 12/19/2020 08/18/2021 12/12/2021 RAJANI-7 Score 8 8 9 (0-4) minimal anxiety, (5-9) mild anxiety, (10-14) moderate anxiety, (15-21) severe anxiety Patient Health Questionnaire - Pediatric (PHQ-A) PHQ-A Scores 08/18/2021 12/12/2021 PHQ-A Total Score 4 8 (0-4) minimal depression, (5-9) mild depression, (10-14) moderate depression, (15-19) moderately severe depression, (20-27) severe depression DATA REVIEWED: The laboratory results have been reviewed. Reviewed pertinent information from guardian report, EMR, and standardized scales. No results found for: WBC, HGB, HCT, PLATELETS, SODIUM, POTASSIUM, BUN, CREAT, AST, ALT, TSH, HGBA1C, CHOL, HDL, LDL, TRIG My Last OARRS Check for this patient OARRS REPORTING HISTORY There is no flowsheet data to display. SIGNATURE: Annie Merida DO DATE of SERVICE: December 12, 2021 TIME of SERVICE: 10:56 AM documented in this encounter [facility] 12-03-2021 Miscellaneous Notes The following approved medication requests have been transmitted electronically. Signed Prescriptions Disp Refills dexmethylphenidate (FOCALIN XR) 15 mg Capsule ER 90 capsule 0 Sig: Take 1 capsule by mouth every morning for 90 days. JOSE Class: C-II TERRI: No Authorizing Provider: DIMPLE BYERS Ma Patient's request for medication is as follows Signed Prescriptions Disp Refills dexmethylphenidate (FOCALIN XR) 15 mg Capsule ER 90 capsule 0 Sig: Take 1 capsule by mouth every morning for 90 days. JOSE Class: C-II TERRI: No Authorizing Provider: DIMPLE BYERS Patient was assessed by pediatric/adolescent psychiatry in July 2021 via virtual visit. Note reviewed. Dimple Byers MD Last WCC: 03/03/21 Last ADHD / Med Check visit: 08/18/21 Verify RX Benefits Completed Last medication refill date: 08/16/21 Requesting 90 day supply Retail pharmacy updated: Completed Patient aware RX will be sent to pharmacy. No need to notify patient. Immunizations due: MENINGOCOCCAL B: Consider based on risk(1 of 2 - Risk Bexsero 2-dose series) Never done HPV VACCINE(1 - Male 2-dose series) Never done MENINGOCOCCAL CONJUGATE(2 - 2-dose series) due on 2020 COVID-19 VACCINE(3 - Booster for Pfizer series) due on 05/01/2021 Bere Greene Ma documented in this encounter [facility] 11-08-2014 History of Past i llness Narrative Problem Noted Date Resolved Date Situational anxiety 11/08/2014 08/18/2021 documented as of this encounter (statuses as of 12/03/2021) [facility] History of Past illness Narrative* Problem Noted Date Resolved Date Situational anxiety 11/08/2014 08/18/2021 documented as of this encounter (statuses as of 12/12/2021) [facility] History of Past illness Narrative* Problem Noted Date Resolved Date Situational anxiety 11/08/2014 08/18/2021 documented as of this encounter (statuses as of 02/23/2022) [place] [id number] History of Past illness Narrative* Problem Noted Date Resolved Date Situational anxiety 11/08/2014 08/18/2021 Unspecified constipation 11/08/2014 022 documented as of this encounter (statuses as of 03/18/2022) [address] History of Past illness Narrative* Problem Noted Date Resolved Date Situational anxiety 11/08/2014 08/18/2021 Unspecified constipation 11/08/2014 022 documented as of this encounter (statuses as of 05/29/2022) [address] History of Past illness Narrative* Problem Noted Date Diagnosed Date Resolved Date Situational anxiety 11/08/2014 08/18/19 22 Unspecified constipation 11/08/2014 documented as of this encounter (statuses as of 02/11/2023) [address] History of Past illness Narrative* Problem Noted Date Diagnosed Date Resolved Date Situational anxiety 11/08/2014 08/18/19 22 Unspecified constipation 11/08/2014 documented as of this encounter (statuses as of 02/24/2023) [address]23-2015 History of Past illness Narrative* Problem Noted Date Diagnosed Date Resolved Date Situational anxiety 11/08/2014 08/18/19 22 Unspecified constipation 11/08/2014 documented as of this encounter (statuses as of 03/31/2023) [address]23-2015 History of Past illness Narrative* Problem Noted Date Diagnosed Date Resolved Date Situational anxiety 11/08/2014 08/18/19 22 Unspecified constipation 11/08/2014 documented as of this encounter (statuses as of 06/01/2023) [address]23-2015 History of Past illness Narrative* Problem Noted Date Diagnosed Date Resolved Date Situational anxiety 11/08/2014 08/18/19 22 Unspecified constipation 11/08/2014 documented as of this encounter (statuses as of 06/02/2023) [address]-2015 History of Past illness Narrative* Problem Noted Date Diagnosed Date Resolved Date Situational anxiety 11/08/2014 08/18/19 22 Unspecified constipation 11/08/2014 documented as of this encounter (statuses as of 09/30/2023) [facility] note* Diagnosis ADHD, predominantly inattentive type Attention deficit disorder without mention of hyperactivity documented in this encounter [facility] note* Diagnosis Generalized anxiety disorder- Primary Panic disorder without agoraphobia ADHD, predominantly inattentive type Attention deficit disorder without mention of hyperactivity Learning disability Other specific developmental learning difficulties Insomnia due to other mental disorder * Assessment & Plan Note - Annie Merida DO - 12/12/2021 11:45 AM EDT Associated Problem(s): Panic disorder without agoraphobia Continue sertraline 150 mg po every day Continue hydroxyzine 25 mg po tid PRN Continue counseling * Assessment & Plan Note - Annie Merida DO - 12/12/2021 11:45 AM EDT Associated Problem(s): Generalized anxiety disorder Continue sertraline 150 mg po every day Continue hydroxyzine 25 mg po tid PRN Continue counseling * Assessment & Plan Note - Annie Merida DO - 12/12/2021 11:44 AM EDT Associated Problem(s): ADHD, predominantly inattentive type Continue Focalin XR 15 mg po every day [facility] Diagnosis ADHD, predominantly inattentive type Attention deficit disorder without mention of hyperactivity [facility] Diagnosis Encounter for routine child health examination w/o abnormal findings- Primary Routine or child health check Screening for depression ADHD, predominantly inattentive type Attention deficit disorder without mention of hyperactivity Generalized anxiety disorder documented in this encounter [facility] note* Diagnosis ADHD, predominantly inattentive type Attention deficit disorder without mention of hyperactivity documented in this encounter [facility] note* Diagnosis Generalized anxiety disorder- Primary Panic disorder without agoraphobia ADHD, predominantly inattentive type Attention deficit disorder without mention of hyperactivity Insomnia due to other mental disorder [facility] Diagnosis ADHD, predominantly inattentive type- Primary Attention deficit disorder without mention of hyperactivity Encounter for immunization Need for other specified prophylactic vaccination against single bacterial disease Generalized anxiety disorder Panic disorder without agoraphobia Learning disability Other specific developmental learning difficulties documented in this encounter [facility] note* Diagnosis ADHD, predominantly inattentive type Attention deficit disorder without mention of hyperactivity documented in this encounter [facility] note* Diagnosis Other acute nonsuppurative otitis media of right ear, recurrence not specified- Primary [facility]* Diagnosis ADHD, predominantly inattentive type Attention deficit disorder without mention of hyperactivity [facility] Diagnosis Generalized anxiety disorder- Primary Panic disorder without agoraphobia ADHD, predominantly inattentive type Attention deficit disorder without mention of hyperactivity Learning disability Other specific developmental learning difficulties 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, predominantly inattentive type- Primary Attention deficit disorder without mention of hyperactivity Generalized anxiety disorder Panic disorder without agoraphobia [facility]* Diagnosis Generalized anxiety disorder- Primary Panic disorder without agoraphobia ADHD, predominantly inattentive type Attention deficit disorder without mention of hyperactivity Learning disability Other specific developmental learning difficulties 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, predominantly inattentive type Attention deficit disorder without mention of hyperactivity [facility] Diagnosis Generalized anxiety disorder- Primary Panic disorder without agoraphobia ADHD, predominantly inattentive type Attention deficit disorder without mention of hyperactivity Learning disability Other specific developmental learning difficulties Insomnia due to other mental disorder Sinobronchitis- Primary Unspecified sinusitis (chronic) Sore throat Acute pharyngitis Acute cough Acute cough [facility] Diagnosis Generalized anxiety disorder- Primary Panic disorder without agoraphobia ADHD, predominantly inattentive type Attention deficit disorder without mention of hyperactivity Learning disability Other specific developmental learning difficulties Insomnia due to other mental disorder Acute cough [facility]* Diagnosis Generalized anxiety disorder- Primary Panic disorder without agoraphobia ADHD, predominantly inattentive type Attention deficit disorder without mention of hyperactivity Learning disability Other specific developmental learning difficulties Insomnia due to other mental disorder Acute cough- Primary documented in this encounter [facility] note* Diagnosis Generalized anxiety disorder- Primary Panic disorder without agoraphobia ADHD, predominantly inattentive type Attention deficit disorder without mention of hyperactivity Learning disability Other specific developmental learning difficulties Insomnia due to other mental disorder Acute cough- Primary [facility]* Diagnosis Generalized anxiety disorder- Primary Panic disorder without agoraphobia ADHD, predominantly inattentive type Attention deficit disorder without mention of hyperactivity Learning disability Other specific developmental learning difficulties Insomnia due to other mental disorder Acute otitis media, right- Primary Unspecified otitis media Dysfunction of both eustachian tubes Dysfunction of Eustachian tube documented [facility] this 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, predominantly inattentive type Attention deficit disorder without mention of hyperactivity [facility]* Diagnosis Generalized anxiety disorder- Primary Panic disorder without agoraphobia ADHD, predominantly inattentive type Attention deficit disorder without mention of hyperactivity Learning disability Other specific developmental learning difficulties Insomnia due to other mental disorder Generalized anxiety disorder- Primary ADHD, predominantly inattentive type Attention deficit disorder without mention of hyperactivity Panic disorder without agoraphobia documented in this encounter [facility] note* Diagnosis Generalized anxiety disorder- Primary Panic disorder without agoraphobia ADHD, predominantly inattentive type Attention deficit disorder without mention of hyperactivity Learning disability Other specific developmental learning difficulties 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, predominantly inattentive type Attention deficit disorder without mention of hyperactivity documented in this encounter [facility] noteNo assessment information availableWWilson [facility] Work Phone: Reason for referral (narrative)No reason for referral information availableWWilson Street Hospital Work Phone: Summary Purpose Family History No Family History Records FoundNo Family History Records Found Advance Directives No Advanced Directives Records FoundNo Advanced Directives Records Found Additional Source Comments Source Comments (unrecognize d section and content) In the event this informatio n is protected by the Federal Confidentiality of Alcohol and Drug Abuse Patient Records regulations: The Federal rules restrict any use of the information to criminally investigate or prosecute any alcohol or drug abuse patient.[facility] the event this information is protected by the Federal Confidentiality of Alcohol and Drug Abuse Patient Records regulations: The Federal rules restrict any use of the information to criminally investigate or prosecute any alcohol or drug abuse patient.[facility] the event this information is protected by the Federal Confidentiality of Alcohol and Drug Abuse Patient Records regulations: The Federal rules restrict any use of the information to criminally investigate or prosecute any alcohol or drug abuse patient.[facility] Center[facility] the event this information is protected by the Federal Confidentiality of Alcohol and Drug Abuse Patient Records regulations: The Federal rules restrict any use of the information to criminally investigate or prosecute any alcohol or drug abuse patient.[facility] Center[facility] the event this information is protected by the Federal Confidentiality of Alcohol and Drug Abuse Patient Records regulations: The Federal rules restrict any use of the information to criminally investigate or prosecute any alcohol or drug abuse patient.[facility] Center[facility] the event this information is protected by the Federal Confidentiality of Alcohol and Drug Abuse Patient Records regulations: The Federal rules restrict any use of the information to criminally investigate or prosecute any alcohol or drug abuse patient.[facility] Center[facility] the event this information is protected by the Federal Confidentiality of Alcohol and Drug Abuse Patient Records regulations: The Federal rules restrict any use of the information to criminally investigate or prosecute any alcohol or drug abuse patient.[facility] Center[facility] the event this information is protected by the Federal Confidentiality of Alcohol and Drug Abuse Patient Records regulations: The Federal rules restrict any use of the information to criminally investigate or prosecute any alcohol or drug abuse patient.[facility] Center[facility] the event this information is protected by the Federal Confidentiality of Alcohol and Drug Abuse Patient Records regulations: The Federal rules restrict any use of the information to criminally investigate or prosecute any alcohol or drug abuse patient.[facility] CenterIn the event this information is protected by the Federal Confidentiality of Alcohol and Drug Abuse Patient Records regulations: The Federal rules restrict any use of the information to criminally investigate or prosecute any alcohol or drug abuse patient.[facility] CenterIn the event this information is protected by the Federal Confidentiality of Alcohol and Drug Abuse Patient Records regulations: The Federal rules restrict any use of the information to criminally investigate or prosecute any alcohol or drug abuse patient.[facility] CenterIn the event this information is protected by the Federal Confidentiality of Alcohol and Drug Abuse Patient Records regulations: The Federal rules restrict any use of the information to criminally investigate or prosecute any alcohol or drug abuse patient.[facility] CenterIn the event this information is protected by the Federal Confidentiality of Alcohol and Drug Abuse Patient Records regulations: The Federal rules restrict any use of the information to criminally investigate or prosecute any alcohol or drug abuse patient.[facility] CenterIn the event this information is protected by the Federal Confidentiality of Alcohol and Drug Abuse Patient Records regulations: The Federal rules restrict any use of the information to criminally investigate or prosecute any alcohol or drug abuse patient.[facility] CenterIn the event this information is protected by the Federal Confidentiality of Alcohol and Drug Abuse Patient Records regulations: The Federal rules restrict any use of the information to criminally investigate or prosecute any alcohol or drug abuse patient.[facility] CenterIn the event this information is protected by the Federal Confidentiality of Alcohol and Drug Abuse Patient Records regulations: The Federal rules restrict any use of the information to criminally investigate or prosecute any alcohol or drug abuse patient.[facility] CenterIn the event this information is protected by the Federal Confidentiality of Alcohol and Drug Abuse Patient Records regulations: The Federal rules restrict any use of the information to criminally investigate or prosecute any alcohol or drug abuse patient.[facility] CenterIn the event this information is protected by the Federal Confidentiality of Alcohol and Drug Abuse Patient Records regulations: The Federal rules restrict any use of the information to criminally investigate or prosecute any alcohol or drug abuse patient.[facility] CenterIn the event this information is protected by the Federal Confidentiality of Alcohol and Drug Abuse Patient Records regulations: The Federal rules restrict any use of the information to criminally investigate or prosecute any alcohol or drug abuse patient.[facility] CenterIn the event this information is protected by the Federal Confidentiality of Alcohol and Drug Abuse Patient Records regulations: The Federal rules restrict any use of the information to criminally investigate or prosecute any alcohol or drug abuse patient.[facility] CenterIn the event this information is protected by the Federal Confidentiality of Alcohol and Drug Abuse Patient Records regulations: The Federal rules restrict any use of the information to criminally investigate or prosecute any alcohol or drug abuse patient.[facility] CenterIn the event this information is protected by the Federal Confidentiality of Alcohol and Drug Abuse Patient Records regulations: The Federal rules restrict any use of the information to criminally investigate or prosecute any alcohol or drug abuse patient.[facility] CenterIn the event this information is protected by the Federal Confidentiality of Alcohol and Drug Abuse Patient Records regulations: The Federal rules restrict any use of the information to criminally investigate or prosecute any alcohol or drug abuse patient.[facility] CenterIn the event this information is protected by the Federal Confidentiality of Alcohol and Drug Abuse Patient Records regulations: The Federal rules restrict any use of the information to criminally investigate or prosecute any alcohol or drug abuse patient.[facility] CenterIn the event this information is protected by the Federal Confidentiality of Alcohol and Drug Abuse Patient Records regulations: The Federal rules restrict any use of the information to criminally investigate or prosecute any alcohol or drug abuse patient.[facility] CenterIn the event this information is protected by the Federal Confidentiality of Alcohol and Drug Abuse Patient Records regulations: The Federal rules restrict any use of the information to criminally investigate or prosecute any alcohol or drug abuse patient.[facility] Reason for Visit (unrecogniz ed section and content) Reason Onset Date Comments Refill Request 12/01/2021 Reason Comments Follow Up Specialty Diagnoses / Procedures Referred By Contac t Referred To Contact Pediatric Psychiatry / CHILD & ADOLESCENT PSYCHIATRY Diagnoses Med Check Procedures VIDEO PSYC/[place] [id number] [place] [address] [place] [address] [place] [address] Referral ID Status Reason Start Date Expiration Date V isits Requested Visits Authorized [id number] Authorized 07/19/2021 07/18/2022 99 99 Reason Onset Date Comments Refill Request 02/21/2022 Reason Comments Physical Reason Onset Date Comments Refill Request 05/26/2022 Reason Onset Date Comments Refill Request 02/04/2023 Reason Onset Date Comments Refill Request 02/18/2023 Reason Onset Date Comments Refill Request 05/31/2023 Reason Comments Medication Follow-up No questions or con cerns for his medications today. Mom and pt. Both think he is doing okay with medication. Reason Onset Date Comments Refill Request 09/29/2023 Reason Comments Ear Pain right ear pain and m uffled x 5 days Reason Onset Date Comments Refill Request 12/10/2023 Reason Onset Date Comments Refill Request 03/24/2024 Opened In Error 03/24/2024 Reason Comments Refill Request Reason Comments axiety/adhd Reason Onset Date Comments Refill Request 05/26/2024 Reason Comments Cough SOB, sore throat X 1 week Reason Comments Cough nasal congestion on augmentin Reason Onset Date Comments Opened In Error 07/10/2024 Reason Comments Cough Cough and SOB x 3 da ys Reason Comments Ear Pain bilateral ear pressu re and pain, right worse x 2 days Reason Onset Date Comments Refill Request 09/20/2024 Reason Comments Medication Check Reason Onset Date Comments Refill Request 01/02/2025 Care Teams (unrecognized sec tion and content) Child Welfare Specialist Relationship Specialty Start Date End Date Dimple Byers MD [address] [place] [address] PCP - General 01/11/07 Child Welfare Specialist Relationship Specialty Start Date End Date Dimple Byers MD [address] [place], [place] [id number] PCP - General 01/11/07 Child Welfare Specialist Relationship Specialty Start Date End Date Dimple Byers MD [address] [place], [place] [id number] PCP - General 01/11/07 Child Welfare Specialist Relationship Specialty Start Date End Date Dimple Byers MD [address] [place], [place] [id number] PCP - General 01/11/07 Child Welfare Specialist Relationship Specialty [place] [address] [place] [id number] PCP - General 01/11/07 Child Welfare Specialist Relationship Specialty Start Date End Date Dimple Byers MD [address] [place] [address] PCP - General 01/11/07 Child Welfare Specialist Relationship Specialty Start Date End Date Dimple Byers MD [address] [place] [address] PCP - General 01/11/07 Child Welfare Specialist Relationship Specialty Start Date End Date Dimple Byers MD [address] [place] [address] PCP - General 01/11/07 Child Welfare Specialist Relationship Specialty Start Date End Date Dimple Byers MD [address] [place] [address] PCP - General 01/11/07 Child Welfare Specialist Relationship Specialty Start Date End Date Dimple Byers MD [address] [place] [address] PCP - General 01/11/07 Child Welfare Specialist Relationship Specialty Start Date End Date Dimple Byers MD [address] [place] [address] PCP - General 01/11/07 Child Welfare Specialist Relationship Specialty Start Date End Date Dimple Byers MD [address] [place] [address] PCP - General 01/11/07 Child Welfare Specialist Relationship Specialty Start Date End Date Dimple Byers MD [address] [place] [address] PCP - General 01/11/07 Child Welfare Specialist Relationship Specialty Start Date End Date Dimple Byers MD [address] [place], [place] [address] PCP - General 01/11/07 Child Welfare Specialist Relationship Specialty Start Date End Date Dimple Byers MD [address] [place], [place] [address] PCP - General 01/11/07 Child Welfare Specialist Relationship Specialty Start Date End Date Dimple Byers MD [address] [place], [place] [id number] PCP - General 01/11/07 Child Welfare Specialist Relationship Specialty Start Date End Date Dimple Byers MD [address] [place] [address] PCP - General 01/11/07 Child Welfare Specialist Relationship Specialty Start Date End Date Dimple Byers MD [address] [place], [place] [id number] PCP - General 01/11/07 Child Welfare Specialist Relationship Specialty Start Date End Date Dimple Byers MD [address] [place], [place] [id number] PCP - General 01/11/07 Team Status: Active Member Role/Relationship Status Dates Dr. Dimple Byers MD Primary care physician Active Dr. Dimple Anderson MD Primary care physician Active Team Status: Inactive Member Role/Relationship Status Dates Dr. Dimple Anderson MD Primary care physician Active Start: April 13, 2025 End: April 13, 2025 Dr. Dimple Anderson MD Attending physician Active Start: April 13, 2025 End: April 13, 2025 Dr. Dimple Anderson MD Referring Provider Active Start: April 13, 2025 End: April 13, 2025 (unrecognized sect ion and content) No Status Records FoundNo Status Records Found INFORMATION SOURCE (unrecogn ized section and content) DATE CREATED AUTHOR 10/11/2024 [facility] DATE CREATED AUTHOR AUTHOR'S OLU JARA 04/20/2025 [facility] Goals (unrecognized section and content) Goals may be documented in a n alternate section FOR RECORDS PERTAINING TO PATIENTS WHO ARE OR HAVE BEEN ENROLLED IN A CHEMICAL DEPENDENCY/SUBSTANCEABUSE PROGRAM, SOME INFORMATION MAY BE OMITTED. This clinical summary was aggregated from multiple sources. Caution should be exercised in using it in the provision of clinical care. This summary normalizes information from multiple sources, and as a consequence, information in this document may materially change the coding, format and clinical context of patient data. In addition, data may be omitted in some cases. CLINICAL DECISIONS SHOULD BE BASED ON THE PRIMARY CLINICAL RECORDS. [facility]. provides no warranty or guarantee of the accuracy or completeness of information in this document.
[2025-05-08 21:47] LABS: AST(SGOT) 30 U/L (<=37); Alanine Aminotransfer ALT/SGPT 34 U/L (<=46); Albumin, Serum 4.7 g/dL (3.5-5.0); Alkaline Phosphatase 114 U/L (40-129); Anion Gap 15 (5-15); BUN 10 mg/dL (4-19); BUN/Creat Ratio 17.8 RATIO (10-20); Calcium,Total 10.1 mg/dL (7.6-11.0); Carbon Dioxide 21.1 mmol/L (21.0-32.0); Chloride 103 mmol/L (98-108); Globulin 3.1 g/dL (2.2-4.2); Glucose 87 mg/dL (70-99); Potassium 4.2 mmol/L (3.3-5.1)
[2025-05-11 12:08] LABS: Immunoglobulin A 235 mg/dL (90-386); Immunoglobulin G 1302 mg/dL (603-1613); Immunoglobulin M 116 mg/dL (20-172); PROEL- A/G Ratio 1.1 (0.7-1.7); PROEL- Albumin 4.1 g/dL (2.9-4.4); PROEL- Alpha-1 Globulin 0.2 g/dL (0.0-0.4); PROEL- Alpha-2 Globulin 0.9 g/dL (0.4-1.0); PROEL- Beta Globulin 1.3 g/dL (0.7-1.3); PROEL- Gamma Globulin 1.2 g/dL (0.4-1.8); PROEL- Globulin, Total 3.6 g/dL (2.2-3.9); PROEL- TOTAL PROTEIN 7.7 g/dL (6.0-8.5); PROEL-M-Spike Not Observed g/dL (Not Observed)
== END | disposition home or self-care (01) ==
PROVIDERS: PCP Family Medicine; Referring Provider Family Medicine; Visit Provider Family Medicine
DX: E88.09 Other disorders of plasma-protein metabolism, not elsewhere classified (principal)
CPT/HCPCS: 36415; 80053; 82784; 84165; 86334